=== PATIENT | male | born 1930 | race Caucasian/White ===

== ENCOUNTER → 2016-03-07 | Outpatient (CLI) | payer MEDICARE, OTHER ==
[~2016-03-07] MED LIST: ACET325T PO; ADVA250A INH; AMLO10 PO; AVOD0.5C PO; CARV12.52 PO; CRAN425C2 PO; CRAN500C2 PO; DIVA125C PO; DULC10SU3 RECTAL; ESCI20TA PO; FERR150C PO; FLUT1SPR20; FLUT50SP; LAC-12LO3 TOPICAL; LEVA500T PO; LEVE500 PO; LEVO50TA4 PO; LORA-392 PO; MELA3TAB PO; MEMA1TAB2 PO; MILKSUS4 PO; MULT-135 PO; TAMS5CAP PO; THERTAB17 PO
[2016-03-07 13:17] LABS: AUTOMATED NEUTROPHIL # 2.5 TH/MM3 (1.8-7.7); BASOPHIL % 0.3 % (0.0-2.0); EOSINOPHIL # 0.3 TH/MM3 (0-0.4); EOSINOPHIL % 5.1 % (0.0-4.0); HEMATOCRIT 38.8 % (39.0-51.0); HEMO FLAGS DIFF FINAL; LYMPHOCYTE # 1.6 TH/MM3 (1.0-4.8); MEAN CELL VOLUME 90.7 FL (80.0-100.0); MEAN CORPUSCULAR HEMOGLOBIN 30.3 PG (27.0-34.0); MEAN CORPUSCULAR HGB CONC 33.4 % (32.0-36.0); NEUT % 50.6 % (16.0-70.0); PLATELET COUNT 124 TH/MM3 (150-450); RED BLOOD COUNT 4.28 MIL/MM3 (4.50-5.90); RED CELL DISTRIBUTION WIDTH 13.9 % (11.6-17.2); WHITE BLOOD COUNT 4.9 TH/MM3 (4.0-11.0)
[2016-03-07 13:32] LABS: APTT (PATIENT) 22.7 SEC (24.3-30.1); INTERNATIONAL NORMALIZED RATIO 0.9 RATIO; PROTHROMBIN TIME - PATIENT 9.7 SEC (9.8-11.6)
[2016-03-07 14:05] LABS: ALKALINE PHOSPHATASE 104 U/L (45-117); ALT (GPT) 24 U/L (12-78); ANION GAP 6 MEQ/L (5-15); AST (GOT) 28 U/L (15-37); BICARBONATE 28.1 MEQ/L (21.0-32.0); CHLORIDE 109 MEQ/L (98-107); GLOMERULAR FILTRATION RATE 47 ML/MIN (>89); GLUCOSE,FASTING 75 MG/DL (74-99); POTASSIUM 4.9 MEQ/L (3.5-5.1); SODIUM (NA) 143 MEQ/L (136-145); TOTAL BILIRUBIN ADULT 0.6 MG/DL (0.2-1.0)
[2016-03-07 14:08] LABS: BLOOD UREA NITROGEN 28 MG/DL (7-18)
== END ==
LOC: CPRE 11:02
PROVIDERS: ATTEND Urology
DX: Z01.812 Encounter for preprocedural laboratory examination (principal); N28.89 Other specified disorders of kidney and ureter
CPT/HCPCS: 36415; 80053; 85025; 85610; 85730

== ENCOUNTER 2016-03-09 14:36 | Inpatient (IN) | payer MEDICARE, OTHER ==
[~2016-03-09] VITALS: Ht 172.7 cm; Wt 81.8 kg
[~2016-03-09 14:36] MED LIST changes: -ACET325T PO; -CRAN500C2 PO; -DIVA125C PO; -DULC10SU3 RECTAL; -FLUT1SPR20; -FLUT50SP; -LAC-12LO3 TOPICAL; -LEVA500T PO; -MELA3TAB PO; -MILKSUS4 PO; -THERTAB17 PO
[2016-03-13] VITALS (9 sets, daily range): BP systolic 110–140; BP diastolic 54–56; PULSE 56–70; RESP 16–18; TEMP 96.6–98.5; O2SAT 92–100
[2016-03-13] MEDS ORDERED: ceFAZolin 2 GM PREMIX 50 ML IV SCH (07:30)
[2016-03-13] MEDS ORDERED: METOPROLOL TARTRATE 25 MG TAB PO PRN (07:30)
[2016-03-13] MEDS ORDERED: LACTATED RINGER'S 1000 ML IV SCH (07:30)
[2016-03-13] MEDS ORDERED: INSULIN HUMAN REGULAR 1,000 UNITS/10 ML VIAL SQ PRN (07:30)
[2016-03-13] MEDS ORDERED: SODIUM CHLORID 0.9% 500 ML IV SCH (07:30)
[2016-03-13] MEDS ORDERED: CRAN500C2 PO (07:56)
[2016-03-13] MEDS ORDERED: DIVA125C PO ×2 (08:03)
[2016-03-13] MEDS ORDERED: FLUT50SP (08:08)
[2016-03-13] MEDS ORDERED: MELA3TAB PO (08:14)
[2016-03-13] MEDS ORDERED: THERTAB17 PO (08:14)
[2016-03-13] MEDS ORDERED: HYDROmorphone HCL PF 2 MG/ML VIAL ONE (08:55)
[2016-03-13] MEDS ORDERED: ACETAMINOPHEN 1000 MG/100 ML VIAL IV ONE (09:12)
[2016-03-13] MEDS ORDERED: SUGAMMADEX SODIUM 200 MG/2 ML VIAL IV PUSH ONE ×2 (09:12)
[2016-03-13] MEDS ORDERED: FUROSEMIDE 40 MG/4 ML VIAL ONE (09:15)
[2016-03-13] MEDS ORDERED: METHYLENE BLUE 10 MG/ML VIAL ONE (09:15)
[2016-03-13] MEDS ORDERED: RESP: ALBUTEROL 2.5 MG/3 ML NEB (SCH) ONE (09:17)
[2016-03-13] MEDS ORDERED: FAMOTIDINE 20 MG/2 ML VIAL ONE (09:22)
[2016-03-13] MEDS ORDERED: LACTATED RINGER'S 1000 ML INJ 2,000 ML IV ONE (09:44)
[2016-03-13] MEDS ORDERED: NORMOSOL R INJ 1,000 ML IV ONE (09:44)
[2016-03-13] MEDS ORDERED: PROPOFOL 200 MG/20 ML AMP IV ONE (09:44)
[2016-03-13] MEDS ORDERED: ePHEDrine/NS 50 MG/5 ML SYR IV ONE (09:44)
[2016-03-13] MEDS ORDERED: ONDANSETRON HCL 4 MG/2 ML VIAL IV PUSH ONE (09:44)
[2016-03-13] MEDS ORDERED: PHENYLEPH/NS 1000 MCG/10 ML SYR IV ONE (09:44)
[2016-03-13] MEDS ORDERED: LIDOCAINE HCL 2% JELLY 5 ML SYRINGE ONE (09:51)
[2016-03-13 13:27] LABS: BLOOD GAS BASE EXCESS -3.2 mmol/L (-2-2); BLOOD GAS CARBOXYHEMOGLOBIN 1.6 % (0-4); BLOOD GAS HCO3 25 mmol/L (22-26); BLOOD GAS METHEMOGLOBIN 1.3 % (0-2); BLOOD GAS O2 HGB SATURATION 88 % (90-100); BLOOD GAS OXYGEN CONTENT 16.9 Vol % (12.0-20.0); BLOOD GAS PCO2 72 mmHg (38-42); BLOOD GAS PO2 80 mmHg (61-120); BLOOD GAS TOTAL HGB 13.6 G/DL (12.0-16.0); TEMP CORR TO 98.6
[2016-03-13 13:28] LABS: CRITICAL VALUE YES; OXYGEN DEVICE VENTILATOR
[2016-03-13 13:29] LABS: STAT NO; VENT SETTINGS OR
[2016-03-13] MEDS ORDERED: ceFAZolin INJ 1,000 MG VIAL IV ONE (13:50)
[2016-03-13] MEDS ORDERED: Post-op Orders (for Pharmacy) MISC XX ONE (14:15)
[2016-03-13] MEDS ORDERED: ONDANSETRON HCL 4 MG/2 ML VIAL IV PRN ×2 (14:15→18:00)
[2016-03-13] MEDS ORDERED: SODIUM CHLORIDE 0.9% FLUSH 5 ML FLUSH IVF SCH (14:15)
[2016-03-13] MEDS ORDERED: SODIUM CHLORIDE 0.9% FLUSH 5 ML FLUSH IVF PRN (14:15)
[2016-03-13] MEDS ORDERED: DO NOT ADM ANY ANTICOAGULANT DRUGS XX PRN (14:30)
[2016-03-13] MEDS ORDERED: MIDAZOLAM HCL 2 MG/2 ML VIAL ONE (14:34)
[2016-03-13] MEDS ORDERED: fentaNYL CITRATE 250 MCG/5 ML AMP ONE (14:34)
[2016-03-13 14:40] LABS: BLOOD GAS BASE EXCESS -4.1 mmol/L (-2-2); BLOOD GAS CARBOXYHEMOGLOBIN 1.6 % (0-4); BLOOD GAS HCO3 24 mmol/L (22-26); BLOOD GAS METHEMOGLOBIN 1.2 % (0-2); BLOOD GAS O2 HGB SATURATION 90 % (90-100); BLOOD GAS OXYGEN CONTENT 14.9 Vol % (12.0-20.0); BLOOD GAS PCO2 69 mmHg (38-42); BLOOD GAS PO2 83 mmHg (61-120); BLOOD GAS TOTAL HGB 11.7 G/DL (12.0-16.0); CRITICAL VALUE YES; OXYGEN DEVICE VENTILATOR; TEMP CORR TO 98.6
[2016-03-13 14:41] LABS: DRAW SITE ART LINE; FIO2 80 %; STAT YES; VENT SETTINGS AC 600/12/+8PEEP
[2016-03-13] MEDS ORDERED: PROPOFOL 1000 MG/100 ML INJ 100 ML ONE (14:48)
[2016-03-13] MEDS ORDERED: HYDROmorphone HCL PF 2 MG/ML VIAL IV PRN (15:00)
[2016-03-13] MEDS ORDERED: TERBUTALINE INJ 1 MG/ML AMP SQ PRN (15:00)
[2016-03-13] MEDS: LACTATED RINGER'S 1000 ML INJ 1,000 ML IV SCH ×2 (15:00→21:57)
[2016-03-13 15:25] LABS: BLOOD GAS BASE EXCESS -3.1 mmol/L (-2-2); BLOOD GAS CARBOXYHEMOGLOBIN 1.6 % (0-4); BLOOD GAS HCO3 24 mmol/L (22-26); BLOOD GAS METHEMOGLOBIN 1.2 % (0-2); BLOOD GAS O2 HGB SATURATION 93 % (90-100); BLOOD GAS OXYGEN CONTENT 16.9 Vol % (12.0-20.0); BLOOD GAS PCO2 62 mmHg (38-42); BLOOD GAS PO2 97 mmHg (61-120); BLOOD GAS TOTAL HGB 12.8 G/DL (12.0-16.0); TEMP CORR TO 98.6
[2016-03-13 15:27] LABS: CRITICAL VALUE YES; DRAW SITE ART LINE; FIO2 80 %; OXYGEN DEVICE VENTILATOR; STAT YES; VENT SETTINGS AC 600/18/+8PEEP
--- NOTE | 2016-03-13 15:58 | RADRPT ---
EXAM DATE/TIME: 03/13/2016 14:27 [facility] COMPARISON: CHEST SINGLE AP, February 12, 2016, 18:54. INDICATIONS : Central line placement. MEDICAL HISTORY : dementia SURGICAL HISTORY : None. ENCOUNTER: Initial ACUITY: 1 day PAIN SCORE: Non-responsive. LOCATION: Bilateral chest FINDINGS: The cardiac silhouette is normal in transverse diameter. Endotracheal tube is in good position above the saba. There is atelectasis in the right upper lobe centrally obstructing lesion is not excluded . A right sided internal jugular vein catheter is in place without pneumothorax with its tip in the s uperior vena cava. CONCLUSION: 1. Uncomplicated line placement. No evidence of pneumothorax. 2. Right upper lobe atelectasis Junaid Ramírez MD on March 13, 2016 at 15:56 Board Certified Radiologist. This report was verified electronically.
[2016-03-13] MEDS ORDERED: PROPOFOL 1000 MG/100 ML IV SCH (16:00)
[2016-03-13] MEDS: PHENYLEPHRINE 40 MG/D5W 496 ML ADMIX IV SCH ×2 (16:01)
[2016-03-13] MEDS: RESP: ALBUTEROL 2.5 MG/IPRATROPIUM 0.5 MG NEB (SCH) INH ×2 (18:00→20:18)
[2016-03-13] MEDS ORDERED: CHLORHEXIDINE GLUCONATE 2 % 1 PACK (2 CLOTHS) TOP PRN (18:00)
[2016-03-13] MEDS ORDERED: ACETAMINOPHEN 325 MG TAB PO PRN (18:00)
[2016-03-13] MEDS ORDERED: SODIUM CHLORIDE 0.9% FLUSH 5 ML FLUSH IV FLUSH PRN (18:00)
[2016-03-13] MEDS ORDERED: MISCELLANEOUS NURSING INFORMATION XX SCH (18:00)
--- NOTE | 2016-03-13 18:23 | PD.CONS ---
[facility] Service Critical Care Medicine Consult Requested By Urology Service Reason for Consult Respiratory Failure Primary Care Physician Sayra Deshpande DO History of Present Illness 85 y/o man immediately following left nephrectomy has ventilator dependent respiratory failure and RUL atelectasis. Seen in PACU and I will follow in ICU. Past Family Social History Allergies: Coded Allergies: No Known Allergies (Unverified , 03/07/16) Physical Exam Vital Signs Vital Signs Date Time Temp Pulse Resp B/P Pulse Ox O2 Delivery O2 Flow Rate FiO2 03/13/16 17:42 80 03/13/16 17:30 97.0 03/13/16 17:00 97.0 56 18 115/65 99 Mechanical Ventilator 80 03/13/16 16:45 57 18 114/64 98 Mechanical Ventilator 80 03/13/16 16:30 80 03/13/16 16:30 56 18 111/60 97 Mechanical Ventilator 80 03/13/16 16:30 96.8 03/13/16 16:15 55 18 111/63 97 Mechanical Ventilator 80 03/13/16 16:00 57 18 114/64 97 Mechanical Ventilator 80 03/13/16 15:45 56 19 114/62 97 Mechanical Ventilator 80 03/13/16 15:30 80 03/13/16 15:30 59 18 114/64 97 Mechanical Ventilator 80 03/13/16 15:30 96.6 03/13/16 15:15 59 18 109/60 96 Mechanical Ventilator 80 03/13/16 15:00 55 18 106/56 96 Mechanical Ventilator 80 03/13/16 14:50 95 80 03/13/16 14:45 54 18 104/53 93 Mechanical Ventilator 80 03/13/16 14:40 96.6 56 18 110/56 93 03/13/16 14:30 58 12 86/49 94 Mechanical Ventilator 80 03/13/16 14:20 96.5 03/13/16 14:19 93 80 03/13/16 14:13 96.5 62 12 91/51 99 Mechanical Ventilator 80 03/13/16 14:13 80 03/13/16 07:49 98.5 70 16 131/54 95 Physical Exam P 60, BP 115/65, R 18 Elderly man, intubated, sedated. Neck: Supple, right IJ line. orally intubated. Lungs: Scattered sonorous rhonchi and left side wheezes. Good krissy air movement. Heart: NL S1S2, RRR, No JVD. Abdomen: Post-surgical, quiet, nondistended. Extremities: Well perfused, toes tepid. Neuro: Pupils 1 mm, react. Sedated, intubated. Laboratory Laboratory Tests Test 03/13/16 03/13/16 03/13/16 03/13/16 08:03 13:07 14:30 15:15 Blood Type O POSITIVE Antibody Screen NEGATIVE Crossmatch Leukocyte-Reduced Red Blood Cells Blood Bank Comment Blood Gas Puncture Site DRAWN IN OR ART LINE ART LINE Blood Gas Patient Temperature 98.6 98.6 98.6 Blood Gas HCO3 25 24 24 Blood Gas Base Excess -3.2 -4.1 -3.1 Blood Gas Oxygen Saturation 88 90 93 Arterial Blood pH 7.16 7.16 7.21 Arterial Blood Partial 72 69 62 Pressure CO2 Arterial Blood Partial 80 83 97 Pressure O2 Arterial Blood Oxygen Content 16.9 14.9 16.9 Arterial Blood 1.6 1.6 1.6 Carboxyhemoglobin Arterial Blood Methemoglobin 1.3 1.2 1.2 Blood Gas Hemoglobin 13.6 11.7 12.8 Oxygen Delivery Device VENTILATOR VENTILATOR VENTILATOR Blood Gas Ventilator Setting OR AC AC 600/12/+8PEEP 600/18/+8PEEP Blood Gas Inspired Oxygen 80 80 Assessment and Plan Assessment and Plan Assessment: 1. Respiratory Failure, hypoxemic. 2. RUL atelectasis. 3. S/P left nephrectomy. Plan: 1. Bronchodilators. 2. PRVC mode. 3. Bronch if RUL doesn't reopen by a.m. 4. SCDS. 5. Protonix. 6. Hgb. Overall impression: Critically ill, requiring elevated FiO2 70% and mechanical ventilation. Acceptable hemodynamics. Admit ICU. Critical care 44 mins Tony Lockhart MD Mar 13, 2016 18:23
[2016-03-13 18:37] LABS: HEMATOCRIT 37.6 % (39.0-51.0)
[2016-03-13 18:39] LABS: REVIEW FLAG FINAL
[2016-03-13] MEDS: PANTOPRAZOLE SODIUM 40 MG VIAL IV PUSH SCH (19:27)
[2016-03-13] MEDS: CHLORHEXIDINE 0.12% (ORAL KIT) 15 ML CUP MT SCH (20:00)
[2016-03-13] MEDS: CARVEDILOL 12.5 MG TAB PO SCH (21:00)
[2016-03-13] MEDS ORDERED: levETIRAcetam 500 MG TAB PO SCH (21:00)
[2016-03-13] MEDS ORDERED: DIVALPROEX SODIUM SPRINKLES 125 MG CAP PO SCH (21:00)
[2016-03-13] MEDS: SODIUM CHLORIDE 0.9% FLUSH 5 ML FLUSH IV FLUSH SCH (21:03)
[2016-03-13] MEDS: levETIRAcetam 500 MG/5 ML UDC PO SCH (21:56)
[2016-03-14] VITALS (19 sets, daily range): BP systolic 121–146; BP diastolic 42–66; PULSE 60–71; RESP 13–20; TEMP 96–98.6; O2SAT 87–100
[2016-03-14] MEDS: MORPHINE SULFATE 4 MG/ML INJ IV PRN ×3 (02:26→19:51)
[2016-03-14] MEDS: RESP: ALBUTEROL 2.5 MG/IPRATROPIUM 0.5 MG NEB (SCH) INH ×4 (03:37→20:07)
[2016-03-14] MEDS: CHLORHEXIDINE GLUCONATE 2 % 1 PACK (2 CLOTHS) TOP SCH (04:35)
[2016-03-14 05:28] LABS: HEMATOCRIT 35.7 % (39.0-51.0)
[2016-03-14 05:30] LABS: REVIEW FLAG FINAL
[2016-03-14] MEDS: LACTATED RINGER'S 1000 ML INJ 1,000 ML IV SCH ×3 (05:33→20:46)
[2016-03-14] MEDS: LEVOTHYROXINE SODIUM 50 MCG TAB PO SCH (05:33)
[2016-03-14] MEDS: DIVALPROEX SODIUM SPRINKLES 125 MG CAP PO SCH ×3 (05:33→22:21)
[2016-03-14 05:52] LABS: BLOOD GAS BASE EXCESS -0.5 mmol/L (-2-2); BLOOD GAS CARBOXYHEMOGLOBIN 1.1 % (0-4); BLOOD GAS HCO3 24 mmol/L (22-26); BLOOD GAS METHEMOGLOBIN 0.8 % (0-2); BLOOD GAS O2 HGB SATURATION 93 % (90-100); BLOOD GAS OXYGEN CONTENT 15.8 Vol % (12.0-20.0); BLOOD GAS PCO2 46 mmHg (38-42); BLOOD GAS PO2 76 mmHg (61-120); BLOOD GAS TOTAL HGB 12.1 G/DL (12.0-16.0); CRITICAL VALUE NO; DRAW SITE ART LINE; FIO2 55 %; OXYGEN DEVICE VENTILATOR; STAT NO; TEMP CORR TO 98.6; VENT SETTINGS PEVC/AC
[2016-03-14 05:53] LABS: ALT (GPT) 21 U/L (12-78); ANION GAP 8 MEQ/L (5-15); AST (GOT) 39 U/L (15-37); BICARBONATE 25.7 MEQ/L (21.0-32.0); BLOOD UREA NITROGEN 24 MG/DL (7-18); CHLORIDE 106 MEQ/L (98-107); GLOMERULAR FILTRATION RATE 37 ML/MIN (>89); POTASSIUM 4.8 MEQ/L (3.5-5.1); SODIUM (NA) 140 MEQ/L (136-145)
[2016-03-14 05:55] LABS: ALKALINE PHOSPHATASE 72 U/L (45-117); TOTAL BILIRUBIN ADULT 0.5 MG/DL (0.2-1.0)
--- NOTE | 2016-03-14 06:43 | RADRPT ---
EXAM DATE/TIME: 03/14/2016 03:28 [facility] COMPARISON: CHEST SINGLE AP, March 13, 2016, 14:27. INDICATIONS : Renal failure, short of breath MEDICAL HISTORY : Renal failure, chronic. SURGICAL HISTORY : None. ENCOUNTER: Subsequent ACUITY: 3 days PAIN SCORE: Non-responsive. LOCATION: Bilateral chest FINDINGS: Endotracheal tube, nasogastric tube and right central line are present in good position. There is mil d infiltrate at the medial right base. Left lung is clear. Cardiomediastinal contours are satisfactor y. CONCLUSION: Improved aeration. Balaji Nunn MD on March 14, 2016 at 6:40 Board Certified Radiologist. This report was verified electronically.
--- NOTE | 2016-03-14 07:29 | HHI.CCPN ---
Subjective Remarks/Hospital Course 85 y/o man immediately following left nephrectomy has ventilator dependent respiratory failure and RUL atelectasis. Seen in PACU and I will follow in ICU. 03/14: RUL has completely re-expanded. Gas exchange acceptable, will start CPAP trials. Urine out excellent. Objective Vital Signs Date Time Temp Pulse Resp B/P Pulse Ox O2 Delivery O2 Flow Rate FiO2 03/14/16 07:20 92 40 03/14/16 06:00 60 03/14/16 04:00 97.6 18 144/52 03/13/16 19:40 Mechanical Ventilator Intake and Output 03/13/16 03/13/16 03/14/16 08:00 16:00 00:00 Intake Total 3700 ml 1260 ml Output Total 990 ml 665 ml Balance 2710 ml 595 ml Result Diagram: 03/14/16 0440 03/14/16 0440 Other Results Laboratory Tests Test 03/13/16 03/13/16 03/13/16 03/14/16 13:07 14:30 15:15 05:45 Blood Gas Puncture Site DRAWN IN OR ART LINE ART LINE ART LINE Blood Gas Patient Temperature 98.6 98.6 98.6 98.6 Blood Gas HCO3 25 mmol/L 24 mmol/L 24 mmol/L 24 mmol/L (22-26) (22-26) (22-26) (22-26) Blood Gas Base Excess -3.2 mmol/L -4.1 mmol/L -3.1 mmol/L -0.5 mmol/L (-2-2) (-2-2) (-2-2) (-2-2) Blood Gas Oxygen Saturation 88 % (90-100) 90 % (90-100) 93 % (90-100) 93 % (90- 100) Arterial Blood pH 7.16 7.16 7.21 7.35 (7.380-7.420) (7.380-7.420) (7.380-7.420) (7.380-7.420) Arterial Blood Partial 72 mmHg (38-42) 69 mmHg (38-42) 62 mmHg (38-42) 46 mmHg ( 38-42) Pressure CO2 Arterial Blood Partial 80 mmHg 83 mmHg 97 mmHg 76 mmHg Pressure O2 (61-120) (61-120) (61-120) (61-120) Arterial Blood Oxygen Content 16.9 Vol % 14.9 Vol % 16.9 Vol % 15.8 Vol % (12.0-20.0) (12.0-20.0) (12.0-20.0) (12.0-20.0) Arterial Blood 1.6 % (0-4) 1.6 % (0-4) 1.6 % (0-4) 1.1 % (0-4) Carboxyhemoglobin Arterial Blood Methemoglobin 1.3 % (0-2) 1.2 % (0-2) 1.2 % (0-2) 0.8 % (0-2) Blood Gas Hemoglobin 13.6 G/DL 11.7 G/DL 12.8 G/DL 12.1 G/DL (12.0-16.0) (12.0-16.0) (12.0-16.0) (12.0-16.0) Oxygen Delivery Device VENTILATOR VENTILATOR VENTILATOR VENTILATOR Blood Gas Ventilator Setting OR AC AC PEVC/AC 600/12/+8PEEP 600/18/+8PEEP Blood Gas Inspired Oxygen 80 % 80 % 55 % Objective Remarks P 62, BP 118/68, R 17 Elderly man, intubated, mildly sedated. Neck: Supple, right IJ line. orally intubated. Lungs: Few sonorous rhonchi and no wheezes. Good krissy air movement. Heart: NL S1S2, RRR, No JVD. Abdomen: Post-surgical, quiet, nondistended. Large midline hernia, easily reducible. Extremities: Well perfused, toes warm now. Neuro: Pupils 2 mm, react. Good spontaneous resp effort. A/P Assessment and Plan Assessment: 1. Respiratory Failure, hypoxemic -> resolved. 2. RUL atelectasis -> resolved. 3. S/P left nephrectomy. Plan: 1. Bronchodilators. 2. PRVC mode -> CPAP trials. 3. Bronch not necessary today. 4. SCDS. 5. Protonix. 6. Hgb a.m. 7. Try to extubate. 8. Follow RFTs. Overall impression: Much improved pulmonary function. Acceptable hemodynamics. Try to extubate. Tony Lockhart MD Mar 14, 2016 07:29
[2016-03-14] MEDS: CHLORHEXIDINE 0.12% (ORAL KIT) 15 ML CUP MT SCH ×2 (08:43→19:53)
[2016-03-14] MEDS: levETIRAcetam 500 MG/5 ML UDC PO SCH ×2 (10:20→22:21)
[2016-03-14] MEDS: SODIUM CHLORIDE 0.9% FLUSH 5 ML FLUSH IV FLUSH SCH ×2 (10:20→19:53)
[2016-03-14] MEDS: CARVEDILOL 12.5 MG TAB PO SCH ×2 (10:20→19:52)
[2016-03-14] MEDS: HYDROmorphone HCL PF 1 MG/ML VIAL IV PRN ×2 (10:30→17:02)
--- NOTE | 2016-03-14 17:04 | HHI.PR ---
Subjective Remarks Postop day #1 Remains intubated Objective Vital Signs Vital Signs Date Time Temp Pulse Resp B/P Pulse Ox O2 Delivery O2 Flow Rate FiO2 03/14/16 16:01 93 65 03/14/16 14:00 70 03/14/16 12:00 97.4 68 18 146/48 95 03/14/16 12:00 68 03/14/16 12:00 65 03/14/16 11:13 94 65 03/14/16 10:40 65 03/14/16 10:00 70 03/14/16 09:00 55 03/14/16 08:00 61 03/14/16 08:00 40 03/14/16 08:00 96.0 61 13 142/51 92 03/14/16 08:00 142/51 03/14/16 07:20 92 40 03/14/16 07:20 40 03/14/16 07:15 40 03/14/16 07:00 Mechanical Ventilator 55 03/14/16 06:00 60 03/14/16 04:34 98 55 03/14/16 04:00 97.6 60 18 144/52 98 03/14/16 04:00 60 03/14/16 04:00 55 03/14/16 02:00 65 03/14/16 01:16 100 55 03/14/16 00:00 60 03/14/16 00:00 97.5 60 18 138/66 100 03/14/16 00:00 60 03/13/16 22:00 64 03/13/16 22:00 60 03/13/16 22:00 98 60 03/13/16 20:40 92 70 03/13/16 20:30 70 03/13/16 20:18 100 50 03/13/16 20:00 100 03/13/16 20:00 100 100 03/13/16 20:00 97.7 64 18 140/54 100 Automatic Cuff 03/13/16 20:00 64 03/13/16 20:00 140/54 Automatic Cuff 03/13/16 19:40 63 18 137/55 99 Mechanical Ventilator 60 03/13/16 19:30 60 18 134/69 99 Mechanical Ventilator 60 03/13/16 19:30 60 03/13/16 19:15 63 18 131/70 99 Mechanical Ventilator 60 03/13/16 19:00 97.5 62 18 120/67 99 Mechanical Ventilator 60 03/13/16 18:48 03/13/16 18:45 63 18 130/70 99 Mechanical Ventilator 60 03/13/16 18:30 61 18 128/71 98 Mechanical Ventilator 60 03/13/16 18:30 60 03/13/16 18:15 61 18 131/73 99 Mechanical Ventilator 60 03/13/16 18:14 98 60 03/13/16 18:14 60 03/13/16 18:10 97.5 03/13/16 18:00 61 20 124/68 99 Mechanical Ventilator 60 03/13/16 17:45 60 20 117/70 99 Mechanical Ventilator 60 03/13/16 17:42 60 03/13/16 17:30 97.0 03/13/16 17:30 62 18 125/70 99 Mechanical Ventilator 80 03/13/16 17:15 59 18 119/66 99 Mechanical Ventilator 80 I/O 03/13/16 03/13/16 03/13/16 03/14/16 03/14/16 03/14/16 07:00 15:00 23:00 07:00 15:00 23:00 Intake Total 3300 ml 1660 ml 1108 ml 1246 ml Output Total 990 ml 665 ml 635 ml 615 ml 30 ml Balance 2310 ml 995 ml 473 ml 631 ml -30 ml Intake IV Total 1410 ml 1108 ml 1111 ml Packed Cells 300 ml 250 ml Other 3000 ml 135 ml Output Urine Total 360 ml 425 ml 440 ml Gastric Drainage Total 100 ml 100 ml Drainage Total 90 ml 305 ml 110 ml 75 ml 30 ml Estimated Blood Loss 600 ml Other 300 ml # Bowel Movements 0 0 Result Diagram: 03/14/16 0440 03/14/16 0440 Objective Remarks Abdomen nondistended, wound sites clean and dry Extremities adequately perfused Assessment and Plan Assessment and Plan Urologic impression: Status post robot-assisted laparoscopic left radical nephrectomy which was converted to an open surgical procedure. Presently hemodynamically stable remains intubated. Plan: #1 continue with ICU care #2 appreciate assistance of the belt notcher #3 continue Morales catheter to gravity drainage #4 continue with local wound care #5 check pathology when available Juan F Ortega MD Mar 14, 2016 17:04
[2016-03-14] MEDS: PANTOPRAZOLE SODIUM 40 MG VIAL IV PUSH SCH (18:11)
[2016-03-14] MEDS: PROPOFOL 1000 MG/100 ML INJ 100 ML IV SCH (19:52)
[2016-03-14] MEDS: PHENYLEPHRINE 40 MG/D5W 496 ML ADMIX IV SCH ×2 (20:44)
[2016-03-15] VITALS (19 sets, daily range): BP systolic 86–136; BP diastolic 42–76; PULSE 77–133; RESP 18–31; TEMP 97.5–99.6; O2SAT 78–99
[2016-03-15] MEDS: MORPHINE SULFATE 4 MG/ML INJ IV PRN ×4 (01:11→21:12)
[2016-03-15] MEDS: RESP: ALBUTEROL 2.5 MG/IPRATROPIUM 0.5 MG NEB (PRN) INH (01:25)
[2016-03-15] MEDS: RESP: ALBUTEROL 2.5 MG/IPRATROPIUM 0.5 MG NEB (SCH) INH ×3 (03:13→20:22)
--- NOTE | 2016-03-15 03:39 | RADRPT ---
EXAM DATE/TIME: 03/15/2016 02:29 [facility] COMPARISON: CHEST SINGLE AP, March 14, 2016, 3:28. INDICATIONS : Evaluate for pulmonary disease. MEDICAL HISTORY : Renal failure, chronic. SURGICAL HISTORY : None. ENCOUNTER: Subsequent ACUITY: 4 - 6 days PAIN SCORE: Non-responsive. LOCATION: Bilateral chest FINDINGS: Endotracheal tube, nasogastric tube and right central line remain in place. There has been slight int erval worsening in aeration with worsening of perihilar and basilar parenchymal opacities, right wors e than left. Cardiomediastinal contours are stable. CONCLUSION: Worsening aeration. Balaji Nunn MD on March 15, 2016 at 3:37 Board Certified Radiologist. This report was verified electronically.
[2016-03-15] MEDS: CHLORHEXIDINE GLUCONATE 2 % 1 PACK (2 CLOTHS) TOP SCH (04:09)
[2016-03-15 04:59] LABS: BASOPHIL % 0.1 % (0.0-2.0); EOSINOPHIL % 0.6 % (0.0-4.0); HEMATOCRIT 36.6 % (39.0-51.0); LYMPH % 8.5 % (9.0-44.0); LYMPHOCYTE # 0.4 TH/MM3 (1.0-4.8); MEAN CELL VOLUME 89.9 FL (80.0-100.0); MEAN CORPUSCULAR HEMOGLOBIN 30.3 PG (27.0-34.0); MEAN CORPUSCULAR HGB CONC 33.7 % (32.0-36.0); MONO % 6.8 % (0.0-8.0); PLATELET COUNT 49 TH/MM3 (150-450); RED BLOOD COUNT 4.07 MIL/MM3 (4.50-5.90); RED CELL DISTRIBUTION WIDTH 15.1 % (11.6-17.2); WHITE BLOOD COUNT 4.8 TH/MM3 (4.0-11.0)
[2016-03-15] MEDS ORDERED: EPINEPHrine HCL (1:10,000) 1 MG/10 ML SYRINGE IV ONE (05:00)
[2016-03-15] MEDS ORDERED: EPINEPHrine HCL (1:1000) 30 MG/30 ML VIAL IV ONE (05:00)
[2016-03-15] MEDS ORDERED: CALCIUM CHLORIDE 10% SOLN 1 GRAM/10 ML SYR IV ONE (05:00)
[2016-03-15] MEDS: PHENYLEPHRINE 40 MG/D5W 496 ML ADMIX IV SCH ×2 (05:16)
[2016-03-15] MEDS: LEVOTHYROXINE SODIUM 50 MCG TAB PO SCH (05:17)
[2016-03-15 05:18] LABS: HEMO FLAGS AUTO DIFF
[2016-03-15] MEDS: LACTATED RINGER'S 1000 ML INJ 1,000 ML IV SCH ×3 (05:18→22:38)
[2016-03-15] MEDS: DIVALPROEX SODIUM SPRINKLES 125 MG CAP PO SCH ×2 (05:18→13:26)
[2016-03-15 05:35] LABS: BICARBONATE 25.4 MEQ/L (21.0-32.0)
[2016-03-15 05:47] LABS: CALCIUM-PROTEIN CORRECTED 8.2 MG/DL (8.5-10.1)
[2016-03-15] MEDS ORDERED: Vancomycin Consult Pharmacy 1 EA OTHER SCH (06:30)
--- NOTE | 2016-03-15 06:34 | HHI.CCPN ---
Subjective Remarks/Hospital Course 85 y/o man immediately following left nephrectomy has ventilator dependent respiratory failure and RUL atelectasis. Seen in PACU and I will follow in ICU. 03/14: RUL has completely re-expanded. Gas exchange acceptable, will start CPAP trials. Urine out excellent. 03/15: Underlying chronic bronchitis and emphysema is complicating recovery. Gram negative sasha in sputum. Will broaden abx coverage. Objective Vital Signs Date Time Temp Pulse Resp B/P Pulse Ox O2 Delivery O2 Flow Rate FiO2 03/15/16 06:00 109 03/15/16 04:36 95 100 03/15/16 04:00 99.6 19 102/42 03/14/16 19:00 Mechanical Ventilator Intake and Output 03/14/16 03/14/16 03/15/16 08:00 16:00 00:00 Intake Total 1168 ml 1246 ml 1363 ml Output Total 635 ml 645 ml 460 ml Balance 533 ml 601 ml 903 ml Result Diagram: 03/15/16 04303/15/16 0430 Objective Remarks P 63, BP 119/67, R 22 Elderly man, intubated Neck: Supple, right IJ line. orally intubated. Lungs: Bilateral sonorous rhonchi and light wheezes. Good krissy air movement. Heart: NL S1S2, RRR, No JVD. Abdomen: Post-surgical, BS active, nondistended. Large midline hernia, easily reducible. Extremities: Well perfused, toes warm now. Neuro: Pupils 2 mm, react. Good spontaneous resp effort. A/P Assessment and Plan Assessment: 1. Respiratory Failure, hypoxemic -> resolved. 2. RUL atelectasis -> resolved. 3. S/P left nephrectomy. 4. Right lung infiltrate Plan: 1. Bronchodilators. 2. PRVC mode -> CPAP trials. 3. Bronch not necessary today. 4. SCDS. 5. Protonix. 6. Hgb a.m. 7. SBTs 8. Follow RFTs. 9. Add vanc and cefepime. Overall impression: Problematic pulmonary function. Acceptable hemodynamics. Tony Lockhart MD Mar 15, 2016 06:34
[2016-03-15] MEDS ORDERED: ALBUMIN HUMAN 5% 12.5 GM/250 ML BOTTLE IV ONE (06:55)
[2016-03-15] MEDS ORDERED: ALBUMIN HUMAN 5% 25 GM/500 ML BOTTLE IV ONE (07:30)
[2016-03-15] MEDS: NOREPINEPHRINE 4 MG/D5W 250 ML IV SCH ×12 (07:45→21:47)
[2016-03-15] MEDS: EPINEPHrine 2 MG/D5W 250 ML IV SCH ×4 (07:55→14:05)
[2016-03-15] MEDS ORDERED: VANCOMYCIN INJ 1,700 MG in SODIUM CHLORID 0.9% 500 ML INJ 500 ML IV ONE (08:00)
[2016-03-15] MEDS ORDERED: methylPREDNISolone SOD SUCC 125 MG/2 ML VIAL ONE (08:02)
[2016-03-15 08:04] LABS: BLOOD GAS BASE EXCESS -3.2 mmol/L (-2-2); BLOOD GAS CARBOXYHEMOGLOBIN 0.8 % (0-4); BLOOD GAS HCO3 22 mmol/L (22-26); BLOOD GAS METHEMOGLOBIN 0.8 % (0-2); BLOOD GAS O2 HGB SATURATION 98 % (90-100); BLOOD GAS OXYGEN CONTENT 15.2 Vol % (12.0-20.0); BLOOD GAS PCO2 48 mmHg (38-42); BLOOD GAS PO2 200 mmHg (61-120); BLOOD GAS TOTAL HGB 10.8 G/DL (12.0-16.0); CRITICAL VALUE YES; OXYGEN DEVICE VENTILATOR; TEMP CORR TO 98.6
[2016-03-15 08:05] LABS: DRAW SITE ART LINE; FIO2 100 %; STAT YES
[2016-03-15] MEDS ORDERED: diphenhydrAMINE HCL 50 MG/ML VIAL ONE (08:09)
[2016-03-15 08:10] LABS: BANDS 28 % (0-6); EOSINOPHILS 3 % (0-4); PLATELET ESTIMATE SMEAR LOW (NORMAL); PLATELET MORPHOLOGY NORMAL (NORMAL); POLYS (SEG NEUTROPHILS) 55 % (16-70); SCAN/DIFF FINAL DIFF MANUAL; WBC DIFF SAMPLE 100
[2016-03-15] MEDS: CHLORHEXIDINE 0.12% (ORAL KIT) 15 ML CUP MT SCH ×2 (08:44→20:00)
[2016-03-15] MEDS: CEFEPIME INJ 2,000 MG in SODIUM CHLORIDE 0.9% INJ 100 ML IV SCH (08:45)
[2016-03-15] MEDS: CARVEDILOL 12.5 MG TAB PO SCH ×2 (09:00→21:00)
[2016-03-15] MEDS: SODIUM CHLORIDE 0.9% FLUSH 5 ML FLUSH IV FLUSH SCH ×2 (09:33→21:09)
[2016-03-15] MEDS: levETIRAcetam 500 MG/5 ML UDC PO SCH ×2 (09:35→21:08)
[2016-03-15] MEDS ORDERED: CALCIUM GLUCONATE INJ 2 GM in SODIUM CHLORIDE 0.9% INJ 100 ML IV ONE (10:00)
[2016-03-15 10:45] LABS: CKMB 4.9 NG/ML (0.5-3.6)
[2016-03-15] MEDS ORDERED: DOBUTamine INJ 500 MG in DEXTROSE 5% IN WATER INJ 210 ML IV SCH ×2 (11:45)
[2016-03-15] MEDS ORDERED: HYDROCORTISONE SOD SUCCINATE 100 MG VIAL IV PUSH SCH (12:00)
[2016-03-15] MEDS ORDERED: LEVOFLOXACIN 750 MG/DEXTROSE 150 ML IV ONE (12:00)
--- NOTE | 2016-03-15 12:34 | HHI.PR ---
Subjective Remarks Postoperative day #2 Remains intubated Objective Vital Signs Vital Signs Date Time Temp Pulse Resp B/P Pulse Ox O2 Delivery O2 Flow Rate FiO2 03/15/16 08:13 98 100 03/15/16 06:00 109 03/15/16 04:36 95 100 03/15/16 04:00 99.6 112 19 102/42 92 03/15/16 04:00 112 03/15/16 04:00 100 03/15/16 02:00 97 03/15/16 01:58 91 85 03/15/16 01:15 93 75 03/15/16 00:00 77 03/15/16 00:00 98.9 78 18 136/51 93 03/15/16 00:00 75 03/14/16 22:00 69 03/14/16 20:07 90 75 03/14/16 20:00 134/48 03/14/16 20:00 98.6 60 18 134/48 94 03/14/16 20:00 60 03/14/16 20:00 75 03/14/16 19:00 Mechanical Ventilator 75 03/14/16 18:58 87 75 03/14/16 18:55 75 03/14/16 18:50 Mechanical Ventilator 75 03/14/16 18:00 68 03/14/16 16:01 93 65 03/14/16 16:00 71 03/14/16 16:00 65 03/14/16 16:00 98.6 71 20 121/42 91 03/14/16 14:00 70 I/O 03/14/16 03/14/16 03/14/16 03/15/16 03/15/16 03/15/16 07:00 15:00 23:00 07:00 15:00 23:00 Intake Total 1168 ml 1246 ml 1363 ml 1696 ml Output Total 635 ml 615 ml 490 ml 420 ml Balance 533 ml 631 ml 873 ml 1276 ml Intake IV Total 1108 ml 1111 ml 1303 ml 1596 ml Tube Irrigant 60 ml 60 ml 100 ml Other 135 ml Output Urine Total 425 ml 440 ml 250 ml 200 ml Gastric Drainage Total 100 ml 100 ml 150 ml 150 ml Drainage Total 110 ml 75 ml 90 ml 70 ml # Bowel Movements 0 0 0 0 Result Diagram: 03/15/1642903/15/16429 Objective Remarks Abdomen nondistended, wound sites clean and dry Extremities adequately perfused EVELYN drain in place with serosanguineous output Assessment and Plan Assessment and Plan Urologic impression: Status post robot-assisted laparoscopic left radical nephrectomy which was converted to an open surgical procedure. Presently hemodynamically stable remains intubated. Primary present concern is pulmonary function. Plan: #1 continue with ICU care #2 appreciate assistance of the supervisor carding #3 continue Morales catheter to gravity drainage #4 continue with local wound care #5 continue with EVELYN drainage #6 check pathology when available Juan F Ortega MD Mar 15, 2016 12:33
[2016-03-15 13:09] LABS: BLOOD GAS VENOUS BASE EXCESS -6.6 mmol/L (-2-2); BLOOD GAS VENOUS HCO3 19 mmol/L (22-26); BLOOD GAS VENOUS O2 CONTENT 10.9 Vol % (9.0-17.0); BLOOD GAS VENOUS O2 HGB SAT 69 % (70-76); BLOOD GAS VENOUS PCO2 44 mmHg (44-48); BLOOD GAS VENOUS PO2 42 mmHg (35-40); BLOOD GAS VENOUS pH 7.27 (7.360-7.400); CRITICAL VALUE YES; OXYGEN DEVICE VENTILATOR; TEMP CORR TO 98.6
[2016-03-15 13:11] LABS: DRAW SITE CENTRAL LINE; FIO2 100 %; STAT YES
--- NOTE | 2016-03-15 14:10 | EC ---
Study Study Date:03/15/2016 STUDY CONCLUSIONS SUMMARY - Procedure narrative: Transthoracic echocardiography. Image quality was poor. Scanning was performed from the parasternal, apical, and subcostal acoustic windows. - Left ventricle: The cavity size was normal. Wall thickness was normal. Systolic function was mildly to moderately reduced. The estimated ejection fraction was in the range of 40% to 45%. Diffuse hypokinesis. - Atrial septum: Echo salinecontrast study showed no [id number] atrial level shunt.. If LV function is below 40, please consider prescribing an ACEI or ARB or document rationale for non-use. PROCEDURE DATA STUDY STATUS: Elective. Procedure: Transthoracic echocardiography. Image quality was poor. Scanning was performed from the parasternal, apical, and subcostal acoustic windows. Study completion: The patient tolerated the procedure well. Transthoracic echocardiography. M-mode, complete 2D, complete spectral Doppler, and color Doppler. Patient status: Inpatient. CARDIAC ANATOMY LEFT VENTRICLE: The cavity size was normal. Wall thickness was normal. Systolic function was mildly to moderately reduced. The estimated ejection fraction was in the range of 40% to 45%. Diffuse hypokinesis. AORTIC VALVE: Trileaflet; normal thickness leaflets. Doppler: Transvalvular velocity was within the normal range. There was no stenosis. No regurgitation. AORTA: Aortic root: The aortic root was normal in size. MITRAL VALVE: Structurally normal valve. Doppler: Transvalvular velocity was within the normal range. There was no evidence for stenosis. No regurgitation. LEFT ATRIUM: The atrium was normal in size. ATRIAL SEPTUM: Echo salinecontrast study showed no tmgjo-ox-wnlp atrial level shunt.. RIGHT VENTRICLE: The cavity size was normal. Wall thickness was normal. PULMONIC VALVE: Doppler: Transvalvular velocity was within the normal range. There was no evidence for stenosis. No regurgitation. TRICUSPID VALVE: Structurally normal valve. Doppler: Transvalvular velocity was within the normal range. No regurgitation. PULMONARY ARTERY: The main pulmonary artery was normal-sized. Systolic pressure was within the normal range. RIGHT ATRIUM: The atrium was normal in size. PERICARDIUM: There was no pericardial effusion. SYSTEMIC VEINS: Inferior vena cava: The vessel was normal in size. BASIC MEASUREMENTS ADULT NORMAL Left ventricle LV internal dimension, ED, chordal level, *40.7 mm 43-52 PLAX LV internal dimension, ES, chordal level, 35.2 mm 23-38 PLAX Fractional shortening, chordal level, PLAX *14 % >29 LV posterior wall thickness, ED 11.2 mm IVS/LVPW ratio, ED 1.06 <1.3 Ventricular septum Septal thickness, ED 11.9 mm Right ventricle RV internal dimension, ED, PLAX *38.4 mm 19-38 LEGEND: Mean values are shown as u=mean value. Asterisk (*) reyes values outside specified normal range. Prepared and signed by Kj Bobo [id number]
[2016-03-15] MEDS ORDERED: HEPARIN SODIUM - IV 10,000 UNITS/10 ML VIAL IV PRN ×4 (16:30→17:15)
[2016-03-15] MEDS ORDERED: HEPARIN 25,000 UNITS-D5W 250 ML - PREMIX IV SCH (16:30)
[2016-03-15] MEDS: PANTOPRAZOLE SODIUM 40 MG VIAL IV PUSH SCH (16:53)
--- NOTE | 2016-03-15 16:54 | MB ---
cc: JOANAJOANA DATE OF CONSULTATION 03/15/16 REASON FOR CONSULTATION Respiratory failure. HISTORY OF PRESENT ILLNESS Mr. Fontana is an 85-year-old male with known history of renal cell carcinoma who underwent a left nephrectomy two days ago, postoperatively requiring continued mechanical ventilation. The patient was noted to have significant hypoxemia requiring high inspired oxygen fraction. He as well was hypotensive, presently on pressor therapy. Metabolic acidosis as well is present. The patient was significantly hypercarbic. This seems to have improved. His PCO2 was in the 60s, now at 48. The patient does not relate any history. The history is obtained from his record. ALLERGIES No known allergies MEDICATIONS Current medications 1. IV pressors as needed 2. Cefepime 3. Depakote 4. Synthroid. 5. Keppra 6. IV sedation as needed. FAMILY HISTORY AND SOCIAL HISTORY Not obtainable. REVIEW OF SYSTEMS A 12-point review of systems essentially as above, otherwise not available. PHYSICAL EXAMINATION VITAL SIGNS:: Temperature is 99.6. His pulse is 110, respirations 18, blood pressure 119/55, oxygen saturation at 85% inspired oxygen fraction at 100%. HEENT: Exam unremarkable. Eyes no icterus. NECK: Without adenopathy or thyroid enlargement. CHEST: Few scattered rhonchi bilaterally. CARDIAC: PMI not appreciated, S1, S2 audible. 1-2/6 ejection systolic murmur left sternal border. ABDOMEN: Lax, bowel sounds audible. EXTREMITIES: No clubbing, cyanosis or edema. LABORATORY DATA White count 4.8, hemoglobin 12, hematocrit 36, platelets 49,000. ABG - pH 7.29, pCO2 42, pO2 200 this a.m. Sodium 138, potassium 4, BUN 25, creatinine 2.0. IMAGING STUDIES Chest x-ray increased markings bilaterally, previous atelectasis right upper lung lobe improved. IMPRESSION 1. Hypoxic and hypercarbic respiratory failure 2. ARDS picture. 3. Status post left nephrectomy for renal cell cancer. PLAN The patient is with multiple medical problems, is on multiple pressors to maintain adequate tissue perfusion. His hypoxemia is probably multifactorial related to the postoperative state. possible infection. Pulmonary embolization is as well a possibility. However, further diagnostic procedures for same at this time is not possible. The patient is with renal insufficiency which makes it inadvisable to proceed with CT angiography. Meanwhile, a ventilation perfusion lung scan would not be helpful. Empiric anticoagulation will be appropriate as well as antibiotic therapy for underlying infection in an attempt to improve oxygenation as much as possible via ventilatory support. His prognosis with his multiple medical problems is guarded to poor. We will follow-up his course along with you and, depending on progress, proceed further. I do thank you for asking to partake in Mr. Fontana's care. Joana Bernard MD WWW/ /3:33 PM /4:37 PM
[2016-03-15] MEDS ORDERED: HEPARIN SODIUM - IV 10,000 UNITS/10 ML VIAL IV ONE (17:15)
[2016-03-15] MEDS ORDERED: methylPREDNISolone SOD SUCC 40 MG/1 ML VIAL IV SCH (18:00)
[2016-03-15] MEDS: methylPREDNISolone SOD SUCC 40 MG/1 ML VIAL IV SCH (18:28)
[2016-03-15] MEDS ORDERED: HEPARIN SODIUM - IV 10,000 UNITS/10 ML VIAL IV SCH (18:45)
[2016-03-15 18:46] LABS: APTT (PATIENT) 36.8 SEC (24.3-30.1)
[2016-03-15] MEDS: HEPARIN 25,000 UNITS-D5W 250 ML - PREMIX IV SCH (19:31)
[2016-03-15] MEDS: DOBUTamine 250 MG/D5W 250 ML PREMIX DRIP IV SCH (20:15)
--- NOTE | 2016-03-15 20:51 | EKG ---
Date Performed: 03/15/2016 Time Performed: 08:02:30 PTAGE: 85 years EKG: sinus tachycardia. Poor R wave progression - probable normal variant Lateral ST-T changes a re nonspecific Borderline ECG NO PREVIOUS TRACING DOCTOR: Dusty Rivero Interpretating Date/Time 03/15/2016 20:50:36
--- NOTE | 2016-03-15 22:34 | MP ---
cc: SOSA ORTEGA MD DATE OF SURGERY 03/13/16 INDICATIONS FOR PROCEDURE Case of a pleasant 85-year-old gentleman with a left renal mass that has been progressing in size who presents today to undergo a robot assisted laparoscopic left radical nephrectomy. PREOPERATIVE DIAGNOSIS Left renal mass highly suspicious for renal cell carcinoma. POSTOPERATIVE DIAGNOSIS Left renal mass highly suspicious for renal cell carcinoma. ATTENDING SURGEON Dr. Jaiden Ortega ROLL RECLAIMER Dr. Hoffman PROCEDURES PERFORMED Robot assisted laparoscopic left radical nephrectomy converted to open surgical procedure ANESTHESIA General. SPECIMENS Left kidney. ESTIMATED BLOOD LOSS 600 mL COMPLICATIONS None. PROCEDURE IN DETAIL The patient was brought to the operating room suite and placed supine on the OR table. He was then placed under general endotracheal anesthesia. He was then repositioned in the right lateral recumbent position with the hip flexed and all pressure points were adequately padded. A beanbag device was utilized to secure the patient in proper position. The patient was next prepped and draped in normal sterile fashion and all pressure points were adequately padded. After an appropriate time-out was undertaken, I proceeded with placing the laparoscopic ports as follows. Initially the Veress needle was utilized to create a pneumoperitoneum in standard fashion. Once this was accomplished, the visual obturator was utilized and, under direct vision, the camera port was placed. Once this was placed, the three robot arm ports were placed under direct vision as well as the physician's assistant port. Next the robot was docked in standard fashion. I repositioned myself over at the [facility] console. Dr. Hoffman remained at the bedside to physician's assistant. I then proceeded with mobilizing the patient's left colon. I cut along the line of Toldt and reflected the colon medially to expose the retroperitoneum. The kidney with mass was identified and mobilized. I was able to identify the hilar vein which was markedly distended with tumor thrombus and I proceeded to gently skeletonize the vein working towards the inferior vena cava. During this portion of the procedure, the patient's O2 sats dropped precipitously and thus the decision was made to undock the robot. The robot was undocked and the pneumoperitoneum was released. Subsequent to this, the patient's O2 saturations improved significantly. At this point in time, I want ahead with completing the procedure by converting to an open surgical procedure. I did discuss with the anesthesiologist if I felt it was safe from their vantage point to proceed with surgery and they agreed that it was so. I then made a left subcostal incision with #10 blade and extended this down to the underlying fascia and muscle layers. I used the Bovie cautery to complete the incision and expose the intra-abdominal cavity. I then proceeded with further dissecting around the hilum vessels and was able to fully identify the left renal vein up to the point of its attachment to the IVC and the tumor thrombus was almost to the IVC, but there was a little bit of space approximately 1 cm prior to reaching the IVC. I could not clearly identify the renal artery at this point, thus I decided to proceed with dividing and ligating the vein. I was able to push back on the tumor thrombus towards the kidney. I was able to get the endovascular stapling device across the proximal renal vein. It was cut and ligated without any difficulty. Once this was accomplished, the left renal artery was identified. It too was divided and ligated with the endovascular stapling device. I then proceeded to further mobilize the kidney and was able to transect the gonadal vein and ureter distally. The kidney was then freed up and handed off to send off to pathology. Careful inspection was made of the left renal bed. No significant bleeding was noted. I then proceeded with placing a EVELYN drain and closed the patient. Two-layer closure was accomplished utilizing #1 PDS suture material. The overlying skin edges were reapproximated with the skin stapling device. The larger laparoscopic port sites were closed by approximating the fascia deeply with 2-0 Vicryl suture and then reema on the skin surface. One of the robot ports was utilized to bring the EVEYLN drain out of and the remaining ports were closed with a skin stapling device. Sterile dressings were then placed over all wound sites. The patient tolerated the procedure without any significant complications and was transferred to the PACU in satisfactory condition. MD NOE Marino/ /2:06 PM /10:24 PM
[2016-03-16] VITALS (19 sets, daily range): BP systolic 121–169; BP diastolic 46–72; PULSE 89–121; RESP 15–40; TEMP 97.4–98.7; O2SAT 90–97
[2016-03-16] MEDS: DIVALPROEX SODIUM SPRINKLES 125 MG CAP PO SCH ×4 (00:36→21:47)
[2016-03-16] MEDS: MORPHINE SULFATE 4 MG/ML INJ IV PRN ×2 (00:36→15:06)
[2016-03-16] MEDS: methylPREDNISolone SOD SUCC 40 MG/1 ML VIAL IV SCH ×4 (00:39→17:25)
[2016-03-16 02:16] LABS: APTT (PATIENT) GREATER THAN 153.4 SEC (24.3-30.1)
[2016-03-16] MEDS: RESP: ALBUTEROL 2.5 MG/IPRATROPIUM 0.5 MG NEB (SCH) INH ×4 (03:25→19:46)
[2016-03-16] MEDS: CHLORHEXIDINE GLUCONATE 2 % 1 PACK (2 CLOTHS) TOP SCH (04:00)
[2016-03-16] MEDS: NOREPINEPHRINE 4 MG/D5W 250 ML IV SCH ×3 (04:26→06:06)
[2016-03-16 04:38] LABS: APTT (PATIENT) GREATER THAN 153.4 SEC (24.3-30.1)
[2016-03-16 05:30] LABS: AUTOMATED NEUTROPHIL # 9.2 TH/MM3 (1.8-7.7); BASOPHIL % 0.1 % (0.0-2.0); HEMATOCRIT 33.8 % (39.0-51.0); LYMPH % 3.2 % (9.0-44.0); LYMPHOCYTE # 0.3 TH/MM3 (1.0-4.8); MEAN CELL VOLUME 90.1 FL (80.0-100.0); MEAN CORPUSCULAR HEMOGLOBIN 30.2 PG (27.0-34.0); MEAN CORPUSCULAR HGB CONC 33.5 % (32.0-36.0); MONO % 7.3 % (0.0-8.0); NEUT % 89.4 % (16.0-70.0); PLATELET COUNT 40 TH/MM3 (150-450); RED BLOOD COUNT 3.75 MIL/MM3 (4.50-5.90); RED CELL DISTRIBUTION WIDTH 15.3 % (11.6-17.2); WHITE BLOOD COUNT 10.3 TH/MM3 (4.0-11.0)
[2016-03-16 05:31] LABS: HEMO FLAGS AUTO DIFF
--- NOTE | 2016-03-16 05:55 | RADRPT ---
EXAM DATE/TIME: 03/16/2016 04:03 [facility] COMPARISON: CHEST SINGLE AP, March 15, 2016, 2:29. INDICATIONS : Please evaluate after respiratory failure. MEDICAL HISTORY : Renal failure, chronic. SURGICAL HISTORY : None. ENCOUNTER: Subsequent ACUITY: 1 day PAIN SCORE: Non-responsive. LOCATION: Bilateral chest FINDINGS: Lines and tubes are present not significantly changed. There is worsening right lung mixed interstiti al and alveolar process with extension into the right upper lobe. Focal consolidation has developed i n the left lung base. CONCLUSION: Worsening right lung parenchymal process and development of focal consolidation left lung base. Romario Charles MD on March 16, 2016 at 5:52 Board Certified Radiologist. This report was verified electronically.
[2016-03-16] MEDS: LEVOTHYROXINE SODIUM 50 MCG TAB PO SCH (06:06)
[2016-03-16] MEDS: LACTATED RINGER'S 1000 ML INJ 1,000 ML IV SCH (06:10)
[2016-03-16 06:14] LABS: BICARBONATE 20.1 MEQ/L (21.0-32.0); POTASSIUM 4.9 MEQ/L (3.5-5.1)
[2016-03-16] MEDS: DOBUTamine 250 MG/D5W 250 ML PREMIX DRIP IV SCH (06:20)
[2016-03-16] MEDS: CEFEPIME INJ 2,000 MG in SODIUM CHLORIDE 0.9% INJ 100 ML IV SCH (06:21)
[2016-03-16] MEDS: PROPOFOL 1000 MG/100 ML INJ 100 ML IV SCH ×3 (06:22→17:25)
--- NOTE | 2016-03-16 06:27 | HHI.CCPN ---
Subjective Remarks/Hospital Course 85 y/o man immediately following left nephrectomy has ventilator dependent respiratory failure and RUL atelectasis. Seen in PACU and I will follow in ICU. 03/14: RUL has completely re-expanded. Gas exchange acceptable, will start CPAP trials. Urine out excellent. 03/15: Underlying chronic bronchitis and emphysema is complicating recovery. Gram negative sasha in sputum. Will broaden abx coverage. 03/16: Continued poor gas diffusion capacity, requiring 90% FiO2. LV function markedly reduced with EF 40% and fractional shortening 14% (while on epinephrine 5 mics/min). Epi now weaned off and dobutamine at 5 mics/kg/min with pulse rate 102. Levophed still > 30 mics.min, unable to taper. Hemodynamics consistent with overwhelming sepsis, most likely cause is Pseudomonas pneumonia. This organism was probably selected through antibiotic use during his recent pneumonia prior to surgery. No R -> L atrial communication to account for dramatic changes in PO2. Objective Vital Signs Date Time Temp Pulse Resp B/P Pulse Ox O2 Delivery O2 Flow Rate FiO2 03/16/16 04:33 96 100 03/16/16 04:00 97.4 108 20 121/49 03/15/16 19:00 Mechanical Ventilator Intake and Output 03/15/16 03/15/16 03/16/16 08:00 16:00 00:00 Intake Total 1696 ml 4949 ml 3034 ml Output Total 420 ml 900 ml 585 ml Balance 1276 ml 4049 ml 2449 ml Result Diagram: 03/16/16 0443 03/15/16 0430 Other Results Microbiology Date/Time Procedure Status Source Growth 03/13/16 20:25 Gram Stain - Final Complete Sputum Endotracheal 03/13/16 20:25 Sputum Culture - Final Complete Pseudomonas Aeruginosa Laboratory Tests Test 03/15/16 03/15/16 07:50 12:55 Blood Gas Puncture Site ART LINE CENTRAL LINE Blood Gas Patient Temperature 98.6 98.6 Blood Gas HCO3 22 mmol/L (22-26) Blood Gas Base Excess -3.2 mmol/L (-2-2) Blood Gas Oxygen Saturation 98 % (90-100) Arterial Blood pH 7.29 (7.380-7.420) Arterial Blood Partial 48 mmHg (38-42) Pressure CO2 Arterial Blood Partial 200 mmHg Pressure O2 (61-120) Arterial Blood Oxygen Content 15.2 Vol % (12.0-20.0) Arterial Blood 0.8 % (0-4) Carboxyhemoglobin Arterial Blood Methemoglobin 0.8 % (0-2) Blood Gas Hemoglobin 10.8 G/DL (12.0-16.0) Oxygen Delivery Device VENTILATOR VENTILATOR Blood Gas Ventilator Setting Blood Gas Inspired Oxygen 100 % 100 % Venous Blood pH 7.27 (7.360-7.400) Venous Blood Partial Pressure 44 mmHg (44-48) CO2 Venous Blood Partial Pressure 42 mmHg (35-40) O2 Venous Blood HCO3 19 mmol/L (22-26) Venous Blood Oxygen Saturation 69 % (70-76) Venous Blood Oxygen Content 10.9 Vol % (9.0-17.0) Venous Blood Base Excess -6.6 mmol/L (-2-2) Objective Remarks P 102, BP 121/68, R 20 Elderly man, intubated Neck: Supple, right IJ line, site clean, dry. orally intubated. Lungs: Persistent bilateral sonorous rhonchi and light wheezes. Good krissy air movement. Heart: NL S1S2, RRR, No JVD. Abdomen: Post-surgical, BS active, nondistended. Large midline hernia, easily reducible. Extremities: Well perfused, toes warm. Neuro: Pupils 2 mm, react. Good spontaneous resp effort. Moves 4 limbs spontaneously, opens eyes to voice. A/P Assessment and Plan Assessment: 1. Respiratory Failure, hypoxemic 2. RUL atelectasis -> resolved. 3. S/P left nephrectomy. 4. Bilateral pneumonia. 5. Lactic acidosis. Plan: 1. Bronchodilators. 2. PSV, continuous. 3. Add levaquin 03/15. 4. SCDS. 5. Protonix. 6. Hgb a.m. 7. SBTs 8. Follow RFTs. 9. Vanc and cefepime. 10. Narrow abx after all cultures returned. 11. Add vasopressin. Overall impression: ARDS behavior, however poor oxygenation is do to infected localized lung units and not diffuse disease. Apices largely replaced with emphysema. He does not oxygenate adequately on AC or PC, but when he initiates each breath his diffusion is acceptable. He remains critically ill, ventilator dependent, and floridly septic. Critical care 45 mins aside from procedures Tony Lockhart MD Mar 16, 2016 06:27
[2016-03-16] MEDS ORDERED: VASOPRESSIN INJ 40 UNITS in DEXTROSE 5% IN WATER 100ML INJ 98 ML IV SCH ×2 (06:38)
[2016-03-16 07:22] LABS: APTT (PATIENT) 117.7 SEC (24.3-30.1)
[2016-03-16 07:43] LABS: BANDS 41 % (0-6); BURR CELLS 2+ (NORMAL); METAMYELOCYTES 2 % (0-1); NEUTROPHIL # MANUAL DIFF 9.3 TH/MM3 (1.8-7.7); PLATELET ESTIMATE SMEAR LOW (NORMAL); PLATELET MORPHOLOGY NORMAL (NORMAL); POLYS (SEG NEUTROPHILS) 47 % (16-70); SCAN/DIFF FINAL DIFF MANUAL; WBC DIFF SAMPLE 100
[2016-03-16] MEDS: CHLORHEXIDINE 0.12% (ORAL KIT) 15 ML CUP MT SCH ×2 (08:27→19:52)
[2016-03-16] MEDS: VASOPRESSIN INJ 40 UNITS in DEXTROSE 5% IN WATER 100ML INJ 98 ML IV SCH ×4 (08:27→18:55)
[2016-03-16] MEDS: BENEPROTEIN POWDER 1 PACK G-TUBE SCH ×3 (08:28→17:25)
[2016-03-16] MEDS: SODIUM CHLORIDE 0.9% FLUSH 5 ML FLUSH IV FLUSH SCH ×2 (08:28→19:55)
[2016-03-16 08:49] LABS: BLOOD GAS BASE EXCESS -7.7 mmol/L (-2-2); BLOOD GAS CARBOXYHEMOGLOBIN 0.9 % (0-4); BLOOD GAS HCO3 18 mmol/L (22-26); BLOOD GAS METHEMOGLOBIN 0.9 % (0-2); BLOOD GAS O2 HGB SATURATION 94 % (90-100); BLOOD GAS PCO2 36 mmHg (38-42); BLOOD GAS PO2 84 mmHg (61-120); BLOOD GAS TOTAL HGB 11.3 G/DL (12.0-16.0); CRITICAL VALUE NO; OXYGEN DEVICE VENTILATOR; TEMP CORR TO 98.6
[2016-03-16 08:50] LABS: DRAW SITE ART LINE; FIO2 90 %; STAT NO; VENT SETTINGS CPAP/PSV12/PEEP10
[2016-03-16 09:04] LABS: LACTIC ACID GHOST NOT REPORTABLE
[2016-03-16] MEDS: levETIRAcetam 500 MG/5 ML UDC PO SCH ×2 (09:34→21:48)
[2016-03-16] MEDS: NOREPINEPHRINE INJ 8 MG in DEXTROSE 5% IN WATE 500 ML INJ 500 ML IV SCH ×4 (09:40→15:49)
[2016-03-16] MEDS: METOCLOPRAMIDE HCL SYRUP 10 MG/10 ML UDC PO SCH ×2 (10:25→19:54)
[2016-03-16] MEDS ORDERED: SODIUM BICARBONATE 8.4% SOLN 50 MEQ/50 ML VIAL IV PUSH ONE (10:30)
[2016-03-16] MEDS ORDERED: VANCOMYCIN 1,500 MG/NS 500 ML IV ONE ×2 (11:00)
--- NOTE | 2016-03-16 11:04 | HHI.PR ---
Subjective Remarks Postop day #3 Remains intubated Objective Vital Signs Vital Signs Date Time Temp Pulse Resp B/P Pulse Ox O2 Delivery O2 Flow Rate FiO2 03/16/16 08:14 97 90 03/16/16 08:00 97 03/16/16 08:00 101 149/48 03/16/16 08:00 98.1 97 18 144/47 97 169/72 03/16/16 08:00 90 03/16/16 07:00 96 Mechanical Ventilator 90 03/16/16 06:00 100 03/16/16 04:33 96 100 03/16/16 04:00 97.4 108 20 121/49 95 03/16/16 04:00 101 03/16/16 04:00 100 03/16/16 02:33 24 03/16/16 02:00 114 03/16/16 01:20 97 100 03/16/16 00:00 98.6 117 40 126/53 95 03/16/16 00:00 100 03/16/16 00:00 121 03/15/16 22:00 121 03/15/16 20:11 85 100 03/15/16 20:00 119 03/15/16 20:00 119 127/50 03/15/16 20:00 99.6 119 27 127/50 84 03/15/16 20:00 100 03/15/16 19:00 84 Mechanical Ventilator 100 03/15/16 18:00 120 03/15/16 16:49 84 100 03/15/16 16:00 100 03/15/16 16:00 98.5 108 21 126/76 82 117/57 03/15/16 16:00 108 03/15/16 14:00 109 03/15/16 12:43 85 100 03/15/16 12:00 107 03/15/16 12:00 98.8 107 20 119/51 78 126/59 03/15/16 12:00 100 I/O 03/15/16 03/15/16 03/15/16 03/16/16 03/16/16 03/16/16 07:00 15:00 23:00 07:00 15:00 23:00 Intake Total 1696 ml 4949 ml 3034 ml 2601 ml Output Total 420 ml 900 ml 585 ml 1355 ml Balance 1276 ml 4049 ml 2449 ml 1246 ml Intake IV Total 1596 ml 4949 ml 2974 ml 2501 ml Tube Irrigant 100 ml 60 ml 100 ml Output Urine Total 200 ml 750 ml 450 ml 1200 ml Gastric Drainage Total 150 ml 100 ml 100 ml 100 ml Drainage Total 70 ml 50 ml 35 ml 55 ml # Bowel Movements 0 0 0 0 Result Diagram: 03/16/1644203/16/16442 Objective Remarks Abdomen nondistended, wound sites clean and dry Extremities adequately perfused EVELYN drain in place with serosanguineous output Assessment and Plan Assessment and Plan Urologic impression: Status post robot-assisted laparoscopic left radical nephrectomy which was converted to an open surgical procedure. Remains ventilator dependent. Remains on pressors. ARDS/Sepsis Plan: #1 continue with ICU care as per rn primary care #2 DC EVELYN drain #3 continue Morales catheter to gravity drainage #4 continue with local wound care #5 check pathology when available Juan F Ortega MD Mar 16, 2016 11:04
[2016-03-16 11:10] LABS: APTT (PATIENT) GREATER THAN 153.4 SEC (24.3-30.1)
[2016-03-16] MEDS ORDERED: LEVOFLOXACIN 250 MG PREMIX INJ 50 ML IV SCH (14:00)
[2016-03-16 14:02] LABS: APTT (PATIENT) 75.8 SEC (24.3-30.1)
--- NOTE | 2016-03-16 14:03 | MB ---
cc: ANJELICA DEJESUS FRANKLYN F. MD DATE OF CONSULTATION: 03/16/2016 REASON FOR CONSULTATION Sepsis. HISTORY OF PRESENT ILLNESS This is an 85-year-old white male who was admitted to the hospital for video-assisted left nephrectomy. The patient underwent the procedure on 03/13/2016 for a left renal mass which was highly suspicious for renal cell carcinoma. The procedure was converted to an open surgical procedure. The patient has been on the ventilator and he was evaluated by pulmonary specialty because of significant hypoxemia. He also developed hypotension. He is currently on Levophed at 22 mcg. Sputum culture was taken on 03/13/2016 and it came back with Pseudomonas aeruginosa. The patient has been afebrile since admission. His white count is 10.3 today, however, his platelet count is decreased at 40. He has 21% bands on the differential. Chest x-ray from 03/13/2016 revealed a right lower lobe infiltrates suggesting atelectasis. Repeat chest x-ray on 03/14/2016 showed improvement but follow-up on 03/15/2016 showed worsening aeration, and he now has worsening right lung parenchymal process and development of focal consolidation of the left lung base. He has a copious amount of thick secretions being suctioned from the endotracheal tube. The patient is currently on the ventilator and is sedated and unresponsive. Information is obtained from the medical records. The patient has been in the hospital recently on two occasions. He was treated for pneumonia with lung infiltrate but cultures were not obtained because he was not coughing up any sputum. At the recent hospitalization he was found to be pancytopenic and was seen by hematology. It was felt that the pancytopenia may have been related to medications and cephalosporin was suspect. He was treated with cefepime and Levaquin during that admission. PAST MEDICAL HISTORY 1. COPD. 2. Hypothyroidism. 3. Coronary artery disease. 4. Hypertension. 5. Gastroesophageal reflux disease. 6. Benign prostatic hypertrophy. 7. Alzheimer's dementia. 8. Cardiomyopathy. 9. Malignant carcinoid tumor. 10. Tonsillectomy. 11. Dental surgery. 12. Renal pathology pending from current left renal mass resection. ALLERGIES No known drug allergies. MEDICATIONS 1. Vancomycin. 2. Cefepime. 3. Norepinephrine. 4. Reglan. 5. Methylprednisolone. 6. Levophed. 7. Dobutamine. 8. Depakote. 9. Norvasc. 10. Synthroid. 11. Keppra. 12. Propofol. 13. Protonix. SOCIAL HISTORY No tobacco. No alcohol. No illicit drugs. FAMILY HISTORY Unable to obtain. REVIEW OF SYSTEMS Unable to obtain. PHYSICAL EXAMINATION GENERAL: This is a slender well-nourished male who is intubated and on the ventilator. He is sedated and unresponsive. VITAL SIGNS: Temperature 98.3, blood pressure 139/46, respirations per ventilator, heart rate 92. HEENT: Head is atraumatic. Unable to assess extraocular movements. Oropharynx intubated. Buccal mucosa is slightly dry. NECK: Supple without adenopathy or swelling. LUNGS: Coarse rhonchi bilaterally. HEART: Regular rate and rhythm. No audible murmurs, rubs or gallops. ABDOMEN: Bowel sounds present. Soft. Unable to appreciate tenderness. Surgical incisions appear intact and there is no drainage at the entry sites where the video-assisted incisions were made for his surgery. : Unremarkable. RECTAL: Not performed. EXTREMITIES: 1+ edema. SKIN: No rash. The patient has multiple skin tags on the upper chest. NEUROLOGIC: Unable to assess. LABORATORY DATA WBC 10.3, platelet count 40, 41% bands, 47% neutrophils, hemoglobin 11.3. WBC on 03/15/2016 was 4.8. Creatinine 2.40, BUN 26, sodium 133. IMPRESSION 1. Severe sepsis. 2. Pneumonia due to Pseudomonas, which is likely the cause of the severe sepsis. 3. Thrombocytopenia. 4. Acute renal disease. 5. Recent pancytopenia. 6. Patient status post radical cystectomy for bladder mass. RECOMMENDATIONS 1. Resume treatment with Levaquin. 2. Change cefepime to piperacillin/tazobactam. 3. Continue vancomycin. 4. Obtain blood cultures. 5. Monitor platelet count. 6. Monitor white blood cell count. Thank you for this consultation. The patient's progress will be monitored and further recommendations will be given on follow-up if necessary. Darío Jiménez MD FD/BRYANNA /12:37 PM /1:43 PM BRITT
[2016-03-16 16:00] LABS: BLOOD GAS BASE EXCESS -6.2 mmol/L (-2-2); BLOOD GAS CARBOXYHEMOGLOBIN 1.1 % (0-4); BLOOD GAS HCO3 19 mmol/L (22-26); BLOOD GAS O2 HGB SATURATION 91 % (90-100); BLOOD GAS OXYGEN CONTENT 13.8 Vol % (12.0-20.0); BLOOD GAS PCO2 37 mmHg (38-42); BLOOD GAS PO2 69 mmHg (61-120); BLOOD GAS TOTAL HGB 10.7 G/DL (12.0-16.0); CRITICAL VALUE NO; DRAW SITE ART LINE; FIO2 90 %; OXYGEN DEVICE VENTILATOR; STAT NO; TEMP CORR TO 98.6
[2016-03-16] MEDS: PIPERACIL-TAZO 2.25 GM PREMIX 50 ML IV SCH (16:26)
[2016-03-16 16:29] LABS: POTASSIUM 5.1 MEQ/L (3.5-5.1)
[2016-03-16 16:30] LABS: MAGNESIUM 1.4 MG/DL (1.5-2.5)
[2016-03-16] MEDS: PANTOPRAZOLE SODIUM 40 MG VIAL IV PUSH SCH (17:25)
[2016-03-16] MEDS ORDERED: SODIUM BICARBONATE 8.4% INJ 50 MEQ/50 ML SYR IV STA (17:48)
[2016-03-16] MEDS: MAGNESIUM SULFAT 1 GM PREMIX 100 ML x2 bags IV SCH ×2 (18:03→18:04)
[2016-03-16 21:47] LABS: APTT (PATIENT) 98.7 SEC (24.3-30.1)
[2016-03-16] MEDS: RESP: ALBUTEROL 2.5 MG/IPRATROPIUM 0.5 MG NEB (PRN) INH (23:39)
[2016-03-17] VITALS (14 sets, daily range): BP systolic 118–130; BP diastolic 36–45; PULSE 90–125; RESP 13–19; TEMP 97.6–98.7; O2SAT 80–94
[2016-03-17] MEDS: methylPREDNISolone SOD SUCC 40 MG/1 ML VIAL IV SCH ×3 (00:48→11:56)
[2016-03-17 02:20] LABS: POTASSIUM 5.1 MEQ/L (3.5-5.1)
[2016-03-17 02:31] LABS: APTT (PATIENT) 68.5 SEC (24.3-30.1)
[2016-03-17] MEDS: PIPERACIL-TAZO 2.25 GM PREMIX 50 ML IV SCH (02:41)
[2016-03-17] MEDS ORDERED: DIGOXIN 0.5 MG/2 ML VIAL IV PUSH SCH (02:45)
[2016-03-17] MEDS: RESP: ALBUTEROL 2.5 MG/IPRATROPIUM 0.5 MG NEB (SCH) INH ×3 (03:30→16:00)
[2016-03-17 03:38] LABS: BLOOD GAS HCO3 21 mmol/L (22-26); BLOOD GAS O2 HGB SATURATION 90 % (90-100); BLOOD GAS OXYGEN CONTENT 12.5 Vol % (12.0-20.0); BLOOD GAS PCO2 47 mmHg (38-42); BLOOD GAS PO2 71 mmHg (61-120); BLOOD GAS TOTAL HGB 9.8 G/DL (12.0-16.0); TEMP CORR TO 98.6
[2016-03-17 03:39] LABS: CRITICAL VALUE YES; DRAW SITE ALINE; FIO2 100 %; OXYGEN DEVICE VENTILATOR; ULNAR PULSE PRESENT; VENT SETTINGS CPAP/PS10/PEEP10
[2016-03-17 03:40] LABS: STAT NO
[2016-03-17] MEDS: CHLORHEXIDINE GLUCONATE 2 % 1 PACK (2 CLOTHS) TOP SCH (03:47)
[2016-03-17] MEDS: HEPARIN 25,000 UNITS-D5W 250 ML - PREMIX IV SCH (04:12)
[2016-03-17] MEDS: DIVALPROEX SODIUM SPRINKLES 125 MG CAP PO SCH ×2 (05:31→14:00)
[2016-03-17] MEDS: LEVOTHYROXINE SODIUM 50 MCG TAB PO SCH (05:31)
[2016-03-17] MEDS ORDERED: PHARMACY ORDERED LAB XX ONE (06:00)
[2016-03-17 06:08] LABS: APTT (PATIENT) 57.3 SEC (24.3-30.1)
[2016-03-17 06:31] LABS: BICARBONATE 22.7 MEQ/L (21.0-32.0); CALCIUM-PROTEIN CORRECTED 8.1 MG/DL (8.5-10.1); MAGNESIUM 2.1 MG/DL (1.5-2.5); POTASSIUM 5.1 MEQ/L (3.5-5.1); TOTAL BILIRUBIN ADULT 0.9 MG/DL (0.2-1.0)
--- NOTE | 2016-03-17 06:32 | RADRPT ---
EXAM DATE/TIME: 03/17/2016 04:51 [facility] COMPARISON: CHEST SINGLE AP, March 16, 2016, 4:03. INDICATIONS : Shortness of breath. MEDICAL HISTORY : Renal failure, chronic. SURGICAL HISTORY : None. ENCOUNTER: Subsequent ACUITY: 4 - 6 days PAIN SCORE: Non-responsive. LOCATION: Bilateral chest FINDINGS: Endotracheal tube tip well above the saba. Gastric tube traverses the [id number]. Right college intern al jugular catheter tip in the distal superior vena cava. No evidence of pneumothorax. Increased de nsity to the airspace opacities in the right midlung, improved consolidation at the left base and per sistent focal areas of opacity in the left perihilar and left lower lung. CONCLUSION: Bilateral airspace opacities, increased on the right, decreased in the medial left and stable in the perihilar and lower lateral left lung. Dalton Morrison MD on March 17, 2016 at 6:29 Board Certified Radiologist. This report was verified electronically.
[2016-03-17 07:06] LABS: AUTOMATED NEUTROPHIL # 5.5 TH/MM3 (1.8-7.7); BASOPHIL % 0.1 % (0.0-2.0); HEMATOCRIT 28.7 % (39.0-51.0); LYMPH % 2.1 % (9.0-44.0); LYMPHOCYTE # 0.1 TH/MM3 (1.0-4.8); MEAN CELL VOLUME 89.4 FL (80.0-100.0); MEAN CORPUSCULAR HEMOGLOBIN 30.6 PG (27.0-34.0); MEAN CORPUSCULAR HGB CONC 34.2 % (32.0-36.0); MONO % 7.2 % (0.0-8.0); NEUT % 90.6 % (16.0-70.0); PLATELET COUNT 33 TH/MM3 (150-450); RED BLOOD COUNT 3.21 MIL/MM3 (4.50-5.90); RED CELL DISTRIBUTION WIDTH 15.5 % (11.6-17.2)
[2016-03-17 08:07] LABS: HEMO FLAGS AUTO DIFF
[2016-03-17] MEDS: PROPOFOL 1000 MG/100 ML INJ 100 ML IV SCH (08:27)
[2016-03-17] MEDS: CHLORHEXIDINE 0.12% (ORAL KIT) 15 ML CUP MT SCH (08:28)
[2016-03-17] MEDS: BENEPROTEIN POWDER 1 PACK G-TUBE SCH (08:29)
[2016-03-17] MEDS: METOCLOPRAMIDE HCL SYRUP 10 MG/10 ML UDC PO SCH (08:30)
[2016-03-17] MEDS: SODIUM CHLORIDE 0.9% FLUSH 5 ML FLUSH IV FLUSH SCH (08:30)
--- NOTE | 2016-03-17 08:34 | HHI.CCPN ---
Subjective Remarks/Hospital Course 85 y/o man immediately following left nephrectomy has ventilator dependent respiratory failure and RUL atelectasis. Seen in PACU and I will follow in ICU. 03/14: RUL has completely re-expanded. Gas exchange acceptable, will start CPAP trials. Urine out excellent. 03/15: Underlying chronic bronchitis and emphysema is complicating recovery. Gram negative sasha in sputum. Will broaden abx coverage. 03/16: Continued poor gas diffusion capacity, requiring 90% FiO2. LV function markedly reduced with EF 40% and fractional shortening 14% (while on epinephrine 5 mics/min). Epi now weaned off and dobutamine at 5 mics/kg/min with pulse rate 102. Levophed still > 30 mics.min, unable to taper. Hemodynamics consistent with overwhelming sepsis, most likely cause is Pseudomonas pneumonia. This organism was probably selected through antibiotic use during his recent pneumonia prior to surgery. No R -> L atrial communication to account for dramatic changes in PO2. 03/17: O2 requirements increased overnight. FiO2 1.00 for the last 12 hours, O2 sat remains 9293 %. With addition of vasopressin, Levophed was weaned to 14 mcgs, to maintain MAP of 65, the patient continues on dobutamine at 5mcgs. The patient had an episode of A. fib with RVR overnight, immediately converted post Digoxin administration. Creatinine continues to increase, urine output averaged 30 cc/hour for the last 24 hours. Objective Vital Signs Date Time Temp Pulse Resp B/P Pulse Ox O2 Delivery O2 Flow Rate FiO2 03/17/16 06:00 92 03/17/16 04:00 100 03/17/16 04:00 97.6 15 130/45 94 03/16/16 07:00 Mechanical Ventilator Intake and Output 03/16/16 03/16/16 03/17/16 08:00 16:00 00:00 Intake Total 2601 ml 2160 ml 1710 ml Output Total 1355 ml 480 ml 200 ml Balance 1246 ml 1680 ml 1510 ml Result Diagram: 03/16/16 0443 03/17/16 0515 Other Results Laboratory Tests Test 03/16/16 03/16/16 03/17/16 08:34 15:53 03:28 Blood Gas Puncture Site ART LINE ART LINE ALVARO Blood Gas Patient Temperature 98.6 98.6 98.6 Blood Gas HCO3 18 mmol/L 19 mmol/L 21 mmol/L (22-26) (22-26) (22-26) Blood Gas Base Excess -7.7 mmol/L -6.2 mmol/L -5.0 mmol/L (-2-2) (-2-2) (-2-2) Blood Gas Oxygen Saturation 94 % (90-100) 91 % (90-100) 90 % (90-100) Arterial Blood pH 7.30 7.33 7.27 (7.380-7.420) (7.380-7.420) (7.380-7.420) Arterial Blood Partial 36 mmHg (38-42) 37 mmHg (38-42) 47 mmHg (38-42) Pressure CO2 Arterial Blood Partial 84 mmHg 69 mmHg 71 mmHg Pressure O2 (61-120) (61-120) (61-120) Arterial Blood Oxygen Content 15.0 Vol % 13.8 Vol % 12.5 Vol % (12.0-20.0) (12.0-20.0) (12.0-20.0) Arterial Blood 0.9 % (0-4) 1.1 % (0-4) 1.0 % (0-4) Carboxyhemoglobin Arterial Blood Methemoglobin 0.9 % (0-2) 1.0 % (0-2) 1.0 % (0-2) Blood Gas Hemoglobin 11.3 G/DL 10.7 G/DL 9.8 G/DL (12.0-16.0) (12.0-16.0) (12.0-16.0) Oxygen Delivery Device VENTILATOR VENTILATOR VENTILATOR Blood Gas Ventilator Setting CPAP/PSV12/PEEP10 CPAP,PEEP10,PS12 CPAP/PS10/PEEP10 Blood Gas Inspired Oxygen 90 % 90 % 100 % Objective Remarks GENERAL: Critically ill appearing gentleman, intubated and sedated SKIN: Warm and dry. HEAD: Atraumatic. Normocephalic. EYES: Pupils equal and round. No scleral icterus. No injection or drainage. ENT: No nasal bleeding or discharge. Mucous membranes pink and moist. Orotracheally intubated. NECK: Trachea midline. No JVD. Right IJ central line, C/D/I CARDIOVASCULAR: Normal rate, regular rhythm. S1,S2 RESPIRATORY: Coarse rhonchorous breath sounds, bilaterally. Expiratory wheezing noted. GASTROINTESTINAL: Abdomen soft, non-tender, slightly protuberant nondistended. Large midline umbilical hernia, easily reducible. Left former EVELYN site, draining clear, pink tinged fluid. Staple line without erythema or drainage. Hypoactive bowel sounds. MUSCULOSKELETAL: Extremities without clubbing, cyanosis, or edema. No obvious deformities. NEUROLOGICAL: GCS 3T, sedated and intubated. Upon sedation vacation, localizes 4 extremities. Urinary Catheter: Yes Assessment to: Continue Morales insert reason: Measure Accurate Output Vascular Central Line Catheter: Yes Assessment to: Continue Side: Right Location: Internal, Jugular A/P Assessment and Plan Plan by systems: Neurologic: Seizure disorder Dementia -Intubated, and sedated on propofol infusion -Will change to fentanyl infusion, and discontinue propofol -Sedation vacation per ICU protocol -Continue Depakote and Keppra home medications Respiratory: Hypoxic respiratory failure H/O tobacco abuse COPD -Bronchodilator scheduled every 6 hours, and every 2 hours when necessary -Currently on CPAP 10 over 10 FiO2 1.0, continue to attempt to wean FiO2 maintain O2 sat 90-92%, the patient continues on spontaneous ventilation -Methylprednisolone 40 mg q 6 hr -Mechanical vent settings CPAP/PSV 10/10 FiO2 1.0, ABG 7.27/47/71/21/-5.0 -SBT when clinically indicated, tolerated -Ventilator bundle -Maintain head of bed 30 -Employment Officer on board Dr. [id number] recommendations - CT chest when stable for transport Cardiovascular: Cardiomyopathy Cardiomegaly A. fib with RVR-resolved -Maintain MAP greater than 65 mmHG -Continue to wean vasopressors currently on levophed 14 mcgs, dobutamine 5 mcgs , vasopressin 0.04mcgs -Obtain BNP ECHO 03/15- EF 40-45% Renal: Acute on chronic kidney disease Lactic acidosis S/P Left Nephrectomy POD #5 -Creatinine 2.13, last admission 10/2015 -Creatinine increasing 2.03->2.40->2.69 -Lactate 3.5on 03/16, follow-up repeat lactate level -Potassium 5.1- last 48 hours -Will begin sodium bicarbonate infusion@ 30/hr, nephrology consulted appreciate recommendations -Will double concentrate all IV fluids, avoid nephrotoxins -Obtain urine sodium and urine creatinine -- Strict I/Os FEN/GI: Hyponatremia Hyperkalemia H/o Carcinoid tumor Severe protein calorie malnutrition Large umbilical hernia -Replete electrolytes per ICU protocol -Zofran for nausea -Protonix GI prophylaxis -Patient currently on Benicar protein 3 times a day, will hold and await recommendations from nephrology - Obtain CT abd, pelvis when clinically stable for transport -Obtain KUB, follow up results Heme/ID: Sepsis Multilobular pneumonia-Pseudomonas Thrombocytopenia -Infectious disease on board, Dr. Jiménez -Follow up blood culture results -Sputum culture03/13 -pseudomonas aeruginosa -Platelet Count 33, continues on heparin infusion for suspected PE per Dr. Bernard. The patient was transfused one 6 pack of platelets 03/16, and Plts continue to decrease. The patient has history of pancytopenia, since 10/2015. No obvious signs of bleeding noted. Will transfuse 1 unit of platelets.Obtain HIT panel.Will D/C heparin infusion. -Hematology consult- appreciate recommendations Endocrine: Hypothyroid -Blood glucose monitoring every 6 hour per ICU protocol -- SSI -Continue Synthroid 50 mcgs -Obtain thyroid panel MSK: -PT evaluate and treat -Functional Maintenance daily Prophylaxis: GI Prophylaxis Protonix DVT Prophylaxis -- SCDs No pharmacologic DVT prophylaxis Lines: Peripheral IVs 2. Right IJ double-lumen Dispo: This patient remains critically ill with one or more organ systems which are or may become a threat to life. I have spent in excess of 49 minutes discontinuously in the care and management of this patient. This time is exclusive of procedures, and includes, but is not limited to, evaluation of the patient, review of the medical record, discussions with family, consultants, nursing staff, or respiratory therapy, and documentation in the medical record. Spoke with daughter Radha Fontana , Healthcare Surrogate and provided an update on the patient's current medical status and consultations regarding Nephrology and Hematology. Physician Lissett Galarza MD Mar 17, 2016 08:34
[2016-03-17] MEDS: levETIRAcetam 500 MG/5 ML UDC PO SCH (08:43)
[2016-03-17] MEDS ORDERED: DEXTROSE 50% IN WATER 50 ML VIAL(D50) IV PUSH PRN (08:45)
[2016-03-17] MEDS ORDERED: GLUCAGON 1 MG/ML VIAL OTHER PRN (08:45)
[2016-03-17] MEDS ORDERED: fentaNYL DRIP 250 ML IV SCH (09:00)
[2016-03-17] MEDS ORDERED: SODIUM BICARBONATE 8.4% INJ 150 MEQ in SODIUM CHLOR 0.9% 1000 ML INJ 850 ML IV SCH (09:00)
[2016-03-17 10:24] LABS: BANDS 26 % (0-6); NEUTROPHIL # MANUAL DIFF 5.4 TH/MM3 (1.8-7.7); PLATELET ESTIMATE SMEAR LOW (NORMAL); PLATELET MORPHOLOGY ENLARGED (NORMAL); POLYS (SEG NEUTROPHILS) 64 % (16-70); SCAN/DIFF FINAL DIFF MANUAL; WBC DIFF SAMPLE 100
[2016-03-17 10:25] LABS: BURR CELLS 1+ (NORMAL)
[2016-03-17] MEDS: INSULIN ASPART SUPPLEMENTAL SCALE SQ SCH ×2 (11:00→16:00)
[2016-03-17] MEDS ORDERED: NOREPINEPHRINE 8 MG/D5W 250 ML IV SCH ×2 (11:45)
[2016-03-17 11:49] LABS: BLOOD GAS BASE EXCESS -5.4 mmol/L (-2-2); BLOOD GAS CARBOXYHEMOGLOBIN 0.8 % (0-4); BLOOD GAS HCO3 22 mmol/L (22-26); BLOOD GAS O2 HGB SATURATION 90 % (90-100); BLOOD GAS OXYGEN CONTENT 12.7 Vol % (12.0-20.0); BLOOD GAS PCO2 62 mmHg (38-42); BLOOD GAS PO2 73 mmHg (61-120); TEMP CORR TO 98.6
[2016-03-17 11:50] LABS: CRITICAL VALUE YES; DRAW SITE ART LINE; FIO2 95 %; OXYGEN DEVICE VENTILATOR; STAT YES; VENT SETTINGS CPAP 10/PS 12
[2016-03-17] MEDS ORDERED: SODIUM BICARBONATE 8.4% INJ 50 MEQ/50 ML SYR ONE (12:10)
[2016-03-17] MEDS ORDERED: SODIUM BICARBONATE 8.4% INJ 50 MEQ/50 ML SYR IV ONE (12:15)
[2016-03-17 12:20] LABS: FREE T4 0.68 NG/DL (0.76-1.46)
[2016-03-17] MEDS ORDERED: ALBUMIN HUMAN 25% 25 GM/100 ML BAGP IV SCH (13:00)
[2016-03-17] MEDS ORDERED: metroNIDAZOLE 500 MG INJ 100 ML IV SCH (14:00)
--- NOTE | 2016-03-17 14:09 | HHI.IDPN ---
Subjective Subjective Remarks is a 85 y/o WM who was admitted to the hospital for video-assisted left nephrectomy. His PMhx is significant for thrombocytopenia, carcinoid tumor , seizure disorder. The patient underwent the procedure on 03/13/2016 for a left renal mass which was highly suspicious for renal cell carcinoma. The procedure was converted to an open surgical procedure. The patient has been on the ventilator and he was evaluated by pulmonary specialty because of significant hypoxemia. He also developed hypotension. He is currently on Levophed at 22 mcg. Sputum culture was taken on 03/13/2016 and it came back with Pseudomonas aeruginosa. The patient has been afebrile since admission. His white count is 10.3 today, however, his platelet count is decreased at 40. He has 21% bands on the differential. Chest x-ray from 03/13/2016 revealed a right lower lobe infiltrates suggesting atelectasis. Repeat chest x-ray on 03/14/2016 showed improvement but follow-up on 03/15/2016 showed worsening aeration, and he now has worsening right lung parenchymal process and development of focal consolidation of the left lung base. He has a copious amount of thick secretions being suctioned from the endotracheal tube. The patient is currently on the ventilator and is sedated and unresponsive. Information is obtained from the medical records. The patient has been in the hospital recently on two occasions. He was treated for pneumonia with lung infiltrate but cultures were not obtained because he was not coughing up any sputum. At the recent hospitalization he was found to be pancytopenic and was seen by hematology. It was felt that the pancytopenia may have been related to medications and cephalosporin was suspect. He was treated with cefepime and Levaquin at that admission. PAST MEDICAL HISTORY 1. COPD. 2. Hypothyroidism. 3. Coronary artery disease. 4. Hypertension. 5. Gastroesophageal reflux disease. 6. Benign prostatic hypertrophy. 7. Alzheimer's dementia. 8. Cardiomyopathy. 9. Malignant carcinoid tumor. 10. Tonsillectomy. 11. Dental surgery. 12. Renal pathology pending from current left renal mass resection. Antibiotics Zosyn IV Levaquin IV Vanco IV Lines RIJ CL site with no e/o infection Left arterial line with no e/o infection. Past Medical History 1. Low platelets was seeing step finisher in the past. COPD. 2. Hypothyroidism. 3. Coronary artery disease. 4. Hypertension. 5. Gastroesophageal reflux disease. 6. Benign prostatic hypertrophy. 7. Alzheimer's dementia. 8. Cardiomyopathy. 9. Malignant carcinoid tumor. 10. Tonsillectomy. 11. Dental surgery. 12. Renal pathology pending from current left renal mass resection. Allergies: Coded Allergies: No Known Allergies (Unverified , 03/07/16) Objective . Vital Signs Date Time Temp Pulse Resp B/P Pulse Ox O2 Delivery O2 Flow Rate FiO2 03/17/16 12:20 91 95 03/17/16 10:00 93 03/17/16 09:13 91 95 03/17/16 08:00 92 03/17/16 08:00 95 03/17/16 08:00 98.3 90 19 118/43 92 03/17/16 06:00 92 03/17/16 04:00 100 03/17/16 04:00 97.6 97 15 130/45 94 03/17/16 04:00 97 03/17/16 03:30 91 100 03/17/16 02:12 125 03/17/16 02:09 96 03/17/16 01:54 92 100 03/17/16 00:00 95 03/17/16 00:00 100 03/17/16 00:00 98.7 94 15 118/41 80 03/16/16 23:37 90 100 03/16/16 22:00 95 03/16/16 20:00 100 03/16/16 20:00 98.4 91 15 131/47 92 135/62 03/16/16 20:00 89 03/16/16 19:46 91 100 03/16/16 18:00 97 03/16/16 17:09 93 90 03/16/16 16:00 90 03/16/16 16:00 96 03/16/16 16:00 98.7 96 18 131/47 93 131/62 03/16/16 03/16/16 03/17/16 15:00 23:00 07:00 Intake Total 2160 ml 1710 ml 1076 ml Output Total 480 ml 200 ml 250 ml Balance 1680 ml 1510 ml 826 ml Intake IV Total 2060 ml 1578 ml 830 ml Tube Feeding 72 ml 126 ml Other 100 ml 60 ml 120 ml Output Urine Total 450 ml 200 ml 250 ml Stool Total 0 ml Drainage Total 30 ml # Bowel Movements 0 0 0 . Laboratory Tests Test 03/16/16 03/17/16 04:43 05:15 White Blood Count 10.3 TH/MM3 6.0 TH/MM3 Red Blood Count 3.75 MIL/MM3 3.21 MIL/MM3 Hemoglobin 11.3 GM/DL 9.8 GM/DL Hematocrit 33.8 % 28.7 % Mean Corpuscular Volume 90.1 FL 89.4 FL Mean Corpuscular Hemoglobin 30.2 PG 30.6 PG Mean Corpuscular Hemoglobin 33.5 % 34.2 % Concent Red Cell Distribution Width 15.3 % 15.5 % Platelet Count 40 TH/MM3 33 TH/MM3 Mean Platelet Volume 10.6 FL 10.5 FL Neutrophils (%) (Auto) 89.4 % 90.6 % Lymphocytes (%) (Auto) 3.2 % 2.1 % Monocytes (%) (Auto) 7.3 % 7.2 % Eosinophils (%) (Auto) 0.0 % 0.0 % Basophils (%) (Auto) 0.1 % 0.1 % Neutrophils # (Auto) 9.2 TH/MM3 5.5 TH/MM3 Lymphocytes # (Auto) 0.3 TH/MM3 0.1 TH/MM3 Monocytes # (Auto) 0.7 TH/MM3 0.4 TH/MM3 Eosinophils # (Auto) 0.0 TH/MM3 0.0 TH/MM3 Basophils # (Auto) 0.0 TH/MM3 0.0 TH/MM3 CBC Comment AUTO DIFF AUTO DIFF Differential Total Cells 100 100 Counted Neutrophils % (Manual) 47 % 64 % Band Neutrophils % 41 % 26 % Lymphocytes % 3 % 2 % Monocytes % 7 % 8 % Neutrophils # (Manual) 9.3 TH/MM3 5.4 TH/MM3 Metamyelocytes 2 % Differential Comment FINAL DIFF FINAL DIFF MANUAL MANUAL Platelet Estimate LOW LOW Platelet Morphology Comment NORMAL ENLARGED Buhler Cells 2+ 1+ Laboratory Tests Test 03/15/16 03/16/16 03/16/16 03/16/16 16:04 04:43 06:55 10:15 Lactic Acid Level 4.4 mmol/L 3.0 mmol/L 3.4 mmol/L Sodium Level 133 MEQ/L Potassium Level 4.9 MEQ/L Chloride Level 104 MEQ/L Carbon Dioxide Level 20.1 MEQ/L Anion Gap 9 MEQ/L Blood Urea Nitrogen 30 MG/DL Creatinine 2.40 MG/DL Estimat Glomerular Filtration 26 ML/MIN Rate Random Glucose 146 MG/DL Calcium Level 7.1 MG/DL Protein Corrected Calcium 8.0 MG/DL Total Protein 5.4 GM/DL Test 03/16/16 03/17/16 03/17/16 03/17/16 15:40 01:41 05:15 11:17 Potassium Level 5.1 MEQ/L 5.1 MEQ/L 5.1 MEQ/L Magnesium Level 1.4 MG/DL 2.0 MG/DL 2.1 MG/DL Sodium Level 130 MEQ/L Chloride Level 97 MEQ/L Carbon Dioxide Level 22.7 MEQ/L Anion Gap 10 MEQ/L Blood Urea Nitrogen 45 MG/DL Creatinine 2.69 MG/DL Estimat Glomerular Filtration 23 ML/MIN Rate Random Glucose 149 MG/DL Calcium Level 7.0 MG/DL Protein Corrected Calcium 8.1 MG/DL Total Bilirubin 0.9 MG/DL Aspartate Amino Transf 80 U/L (AST/SGOT) Alanine Aminotransferase 17 U/L (ALT/SGPT) Alkaline Phosphatase 51 U/L Total Protein 5.1 GM/DL Albumin 1.6 GM/DL Lactic Acid Level 2.0 mmol/L B-Type Natriuretic Peptide 867 PG/ML Free Thyroxine 0.68 NG/DL Thyroid Stimulating Hormone 0.401 uIU/ML 3rd Gen Microbiology Date/Time Procedure Status Source Growth 03/16/16 14:17 Aerobic Blood Culture - Preliminary Resulted Blood Peripheral NO GROWTH IN 1 DAY 03/16/16 14:17 Anaerobic Blood Culture - Final Resulted Blood Peripheral QNS - SEE AEROBE REPORT 03/16/16 14:24 Aerobic Blood Culture - Preliminary Resulted Blood Peripheral NO GROWTH IN 1 DAY 03/16/16 14:24 Anaerobic Blood Culture - Final Resulted Blood Peripheral QNS - SEE AEROBE REPORT Imaging Last Impressions Chest X-Ray 03/17/16 0400 Signed Impressions: Service Date/Time: Thursday, March 17, 2016 04:51 - CONCLUSION: Bilateral airspace opacities, increased on the right, decreased in the medial left and stable in the perihilar and lower lateral left lung. Dalton Morrison MD Physical Exam GENERAL: Acutely ill, intubated and sedated. HEENT: Head is atraumatic. Unable to assess extraocular movements. Oropharynx intubated. Buccal mucosa is slightly dry. NECK: Supple without adenopathy or swelling. LUNGS: Coarse rhonchi bilaterally. HEART: Regular rate and rhythm. No audible murmurs, rubs or gallops. ABDOMEN: Bowel sounds present. Soft. Unable to appreciate tenderness. Surgical incisions appear intact and there is no drainage at the entry sites where the video-assisted incisions were made for his surgery. : Unremarkable. RECTAL: Not performed. EXTREMITIES: 1+ edema. SKIN: No rash. The patient has multiple skin tags on the upper chest. NEUROLOGIC: Unable to assess. Assessment & Plan Remarks Septic Shock with MODS s/p left side robotic converted to open nephrectomy. h/o carcinoid syndrome/tumor. Sources: Intra-abd, Cath associated UTI, Central line associated bacteremia, Pneumonia. Acute resp failure on vent: Sepsis, pulm edema from ARF. Acute renal failure: sepsis, Acute interstitial nephritis from meds. Acute metabolic encephalopathy: sepsis, ? IC bleed. Anemia and thrombocytopenia: ? chronic. PSAE Pneumonia: pansensitive PSAE. Umbilical hernia: reducible. Seizure disorder on antiepileptics. Recs: Panculture again including lines. DC Zosyn IV DC Levaquin IV DC Vanco IV (will redose based on levels) Start Zerbaxa IV (ASP: suspect MDR PSAE, cannot use Meropenem IV as he has seizure disorder) Start Flagyl IV (suspect intra abd pathology) Start Micafungin IV (line infection vs intraabdominal pathology) Abdomen KUB stat (r/o free air/perforation) CT chest/abd/pelvis without contrast ordered stat but currently patient on max dose pressors and resp condition may not permit. Once able to would like imaging piter. Platelet workup: HIT panel, DIC/consumptive pathology workup. Hematology consult pending. Time in excess of 40 mins, d/w micro, d/w clinical pharmacist about Zerbaxa and renal dosing. d/w RN and . Critical thinking and decision making. Joellen Beltran MD Mar 17, 2016 14:09
[2016-03-17 14:43] LABS: BLOOD GAS BASE EXCESS -3.2 mmol/L (-2-2); BLOOD GAS HCO3 24 mmol/L (22-26); BLOOD GAS O2 HGB SATURATION 90 % (90-100); BLOOD GAS OXYGEN CONTENT 11.8 Vol % (12.0-20.0); BLOOD GAS PCO2 60 mmHg (38-42); BLOOD GAS PO2 70 mmHg (61-120); BLOOD GAS TOTAL HGB 9.3 G/DL (12.0-16.0); CRITICAL VALUE YES; OXYGEN DEVICE Y; TEMP CORR TO 98.6; VENT SETTINGS CPAP 10/PS 12
[2016-03-17 14:44] LABS: FIO2 95 %
[2016-03-17 14:46] LABS: DRAW SITE ART LINE; STAT NO
[2016-03-17] MEDS ORDERED: BUMETANIDE INJ 1 MG/4 ML VIAL IV PUSH ONE (15:00)
[2016-03-17] MEDS ORDERED: MICAFUNGIN INJ 150 MG in SODIUM CHLORIDE 0.9% INJ 100 ML IV SCH (15:00)
--- NOTE | 2016-03-17 15:12 | RADRPT ---
EXAM DATE/TIME: 03/17/2016 14:30 [facility] COMPARISON: No previous studies available for comparison. INDICATIONS : Abdomen pain. MEDICAL HISTORY : None. SURGICAL HISTORY : Colon resection. Nephrectomy, left. ENCOUNTER: Subsequent ACUITY: 4 - 6 days PAIN SCORE: Non-responsive. LOCATION: Bilateral lower quadrant FINDINGS: 2 supine frontal views of the abdomen demonstrates a relative paucity of bowel gas. Nasogastric tube is present as well as a catheter overlying the pelvis. Marcial overlie the left abdomen and left uppe r quadrant. No organomegaly is appreciated. There are degenerative changes of the spine. Airspace con solidation is present in the midlung zones bilaterally, right greater than left. CONCLUSION: 1. No acute abdominal abnormality is identified. 2. Bilateral lung airspace consolidation. Balaji Gomez MD on March 17, 2016 at 15:09 Board Certified Radiologist. This report was verified electronically.
[2016-03-17] MEDS ORDERED: MORPHINE SULFATE 8 MG/ML INJ IV PUSH ONE (15:45)
[2016-03-17] MEDS ORDERED: HYOSCYAMINE 0.5 MG/ML AMP IV ONE (15:45)
[2016-03-17] MEDS ORDERED: MIDAZOLAM HCL 5 MG/ML VIAL (1 ML) IV ONE ×2 (15:45→16:00)
--- NOTE | 2016-03-17 15:59 | HHI.PR ---
Subjective Remarks POD #4 Remains intubated and non-responsive. Family wishes to withdraw care and keep pt comfortable. Objective Vital Signs Vital Signs Date Time Temp Pulse Resp B/P Pulse Ox O2 Delivery O2 Flow Rate FiO2 03/17/16 12:20 91 95 03/17/16 10:00 93 03/17/16 09:13 91 95 03/17/16 08:00 92 03/17/16 08:00 95 03/17/16 08:00 98.3 90 19 118/43 92 03/17/16 06:00 92 03/17/16 04:00 100 03/17/16 04:00 97.6 97 15 130/45 94 03/17/16 04:00 97 03/17/16 03:30 91 100 03/17/16 02:12 125 03/17/16 02:09 96 03/17/16 01:54 92 100 03/17/16 00:00 95 03/17/16 00:00 100 03/17/16 00:00 98.7 94 15 118/41 80 03/16/16 23:37 90 100 03/16/16 22:00 95 03/16/16 20:00 100 03/16/16 20:00 98.4 91 15 131/47 92 135/62 03/16/16 20:00 89 03/16/16 19:46 91 100 03/16/16 18:00 97 03/16/16 17:09 93 90 03/16/16 16:00 90 03/16/16 16:00 96 03/16/16 16:00 98.7 96 18 131/47 93 131/62 I/O 03/16/16 03/16/16 03/16/16 03/17/16 03/17/16 03/17/16 07:00 15:00 23:00 07:00 15:00 23:00 Intake Total 2601 ml 2160 ml 1710 ml 1076 ml Output Total 1355 ml 480 ml 200 ml 250 ml Balance 1246 ml 1680 ml 1510 ml 826 ml Intake IV Total 2501 ml 2060 ml 1578 ml 830 ml Tube Feeding 72 ml 126 ml Tube Irrigant 100 ml Other 100 ml 60 ml 120 ml Output Urine Total 1200 ml 450 ml 200 ml 250 ml Stool Total 0 ml Gastric Drainage Total 100 ml Drainage Total 55 ml 30 ml # Bowel Movements 0 0 0 0 Result Diagram: 03/17/16 0515 03/17/16 0515 Objective Remarks Abdomen nondistended, wound sites clean and dry Extremities adequately perfused EVELYN drain in place with serosanguineous output Assessment and Plan Assessment and Plan Urologic impression: Status post robot-assisted laparoscopic left radical nephrectomy which was converted to an open surgical procedure. Remains ventilator dependent and non-reponsive. Remains on pressors. ARDS/Sepsis Prognosis poor Plan: Wthdraw care as per request of family and keep pt comfortable. Appreciate assistance from Dr Paul. Juan F Ortega MD Mar 17, 2016 15:59
[2016-03-17] MEDS ORDERED: CEFTOLOZANE-TAZOBACTAM INJ 375 MG in SODIUM CHLORIDE 0.9% INJ 100 ML IV SCH (16:00)
[2016-03-17] MEDS ORDERED: MORPHINE SULFATE 4 MG/ML INJ IV ONE (16:00)
[2016-03-17] MEDS ORDERED: MORPHINE SULFATE 4 MG/ML INJ IV PRN (16:15)
[2016-03-17] MEDS ORDERED: LORazepam 2 MG/ML VIAL IV PRN (16:15)
[2016-03-17] MEDS ORDERED: BISACODYL 10 MG SUPP PR PRN (16:15)
[2016-03-17] MEDS ORDERED: MORPHINE SULFATE 8 MG/ML INJ IV PUSH PRN (16:15)
[2016-03-17] MEDS ORDERED: FUROSEMIDE 20 MG/2 ML VIAL IV PRN (16:15)
[2016-03-17] MEDS ORDERED: LORazepam 2 MG/ML VIAL IVS PRN (16:15)
[2016-03-17] MEDS ORDERED: HYOSCYAMINE 0.5 MG/ML AMP IV PRN (16:15)
[2016-03-17] MEDS ORDERED: ACETAMINOPHEN 650 MG SUPP PR PRN (16:15)
[2016-03-17] MEDS: VASOPRESSIN INJ 40 UNITS in DEXTROSE 5% IN WATER 100ML INJ 98 ML IV SCH ×2 (16:31)
[2016-03-17] MEDS ORDERED: BUMETANIDE INJ 1 MG/4 ML VIAL IV PUSH SCH (18:00)
--- NOTE | 2016-03-17 19:00 | MB ---
cc: LEATHA KINGSTON MD DATE OF CONSULTATION: 03/17/2016. REASON FOR CONSULTATION: Acute renal failure. HISTORY OF PRESENT ILLNESS: This is an 85-year-old male. The patient has a history of a renal mass and underwent a left-sided nephrectomy on March 13 which was suspicious for renal cell cancer. Pathology is pending at this time. The procedure was initially started as a robotic procedure and was converted to an open surgical procedure. Postoperatively the patient had respiratory failure and developed hypotension. The patient is in the ICU at this time and is intubated. He has been diagnosed with an apparent Pseudomonas pneumonia and is being followed up with infectious disease and is on a Levaquin dose at this time. The patient was being treated for her ongoing pneumonia with sepsis and remains on pressor support at this time. The patient had a previous hospitalization earlier with pneumonia and also had previous hospitalization where he had thrombocytopenia which was attributed to possible cephalosporins. Over this hospital course his platelet counts have decreased with his ongoing sepsis with a platelet count of 33,000 today. Regarding his renal function, the patient had apparently creatinine that ranged between 1.2 and 2.1 since October of 2015. His creatinine was 1.44 on March 07 and increased up to 2 and then 2.4 and 2.69 today. Over the last 24 hours his urine output has started to decrease. He did make 2.4 liters of urine output yesterday; however, today he has only reportedly been making between 10 and 20 cc per hour. His pressor support was also increased today. Given the worsening renal function, nephrology was consulted for further evaluation. PAST MEDICAL HISTORY: His past medical history includes: 1. COPD. 2. Hypothyroidism. 3. Coronary artery disease. 4. Hypertension. 5. Gastroesophageal reflux disease (GERD). 6. Benign prostate hypertrophy. 7. Alzheimer's dementia. 8. Cardiomyopathy. 9. Apparent carcinoid tumor. 10. Tonsillectomy. 11. Dental surgery. 12. The patient had a nephrectomy here on this admission and his pathology results are pending at this time. 13. 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 ALLERGIES: NO KNOWN DRUG ALLERGIES. SOCIAL HISTORY: No tobacco, alcohol or drug use. FAMILY HISTORY: No known history of kidney disease. REVIEW OF SYSTEMS: His review of systems is unobtainable as the patient is intubated and sedated at this time. PHYSICAL EXAMINATION: GENERAL: At the time of evaluation, the patient is intubated and sedated. HEAD, EYES, EARS, NOSE, THROAT AND NECK: Soft, supple. CARDIAC: Regular rate and rhythm. PULMONARY: Decreased breath sounds at the bases. Bibasilar crackles. ABDOMEN: Distended. Decreased abdominal sounds. EXTREMITIES: 2+ edema. LABORATORY FINDINGS: Sodium 130, potassium 5.1, chloride 97, bicarb 22, BUN 45, creatinine 2.69 with glucose of 149, calcium of 8.1 and albumin of 1.6. White count 6.0, hemoglobin 9.8, hematocrit 28.7, platelet count 33,000. ASSESSMENT AND PLAN: 1. Acute kidney injury. The patient had a nephrectomy on March 13. His previous creatinine ranged between 1.2 and 2.1 since October of this year and his creatinine prior to nephrectomy was 1.44 on March 07. Postoperatively his creatinine has risen to 2.0 and then 2.4 and then 2.69. It is unclear what type of function his existing kidney has and what the patient's new baseline creatinine will be post nephrectomy; however, in this setting, the patient is also experiencing sepsis with pressor support given his ongoing pneumonia and is now experiencing increased volume overload. At this point, I suspect the patient has acute kidney injury partially due to nephrectomy and also due to ongoing sepsis and hypotension. He has had increased fluid overload with decreased urine output today. At this point, I will go ahead and initiate Bumex and I will give 2 milligrams IV twice a day dosing for now and start an infusion of albumin given his hypoalbuminemia. The patient has been making some urine output. With further urine output, this may improve his volume status. Continue to renal dose medications and antibiotics. There are no indications for dialysis at this time; however, should his renal function continue to worsen, this may be indicative of possible acute tubular necrosis in the setting of hypotension and sepsis and dialysis support may be necessary in the future; however, continue to closely monitor at this point. 2. Pneumonia. Patient with apparent Pseudomonas pneumonia. The patient is being followed with infectious disease and is on Levaquin and Zosyn at this time. Continue to closely monitor. He is on pressor support for sepsis and has decreased platelets as well. Continue to closely monitor and transfuse platelets as needed. 3. Renal cell cancer. The patient is status post nephrectomy. Pathology results are pending at this point. Continue to monitor. 4. Respiratory failure. Will initiate diuretics to goal to diurese as possible; however, the patient remains on significant pressors as well at this time. Continue to monitor. 5. Acidosis. The patient was started earlier on sodium bicarbonate drip at 30 cc/hour. Continue to closely monitor as this is secondary to his renal failure. 6. Atrial fibrillation with rapid ventricular response. The patient apparently had atrial fibrillation with rapid ventricular response last night, which was controlled with Digoxin. Continue to monitor in the intensive care unit. 7. Hypothyroidism. The patient is on Synthroid. Continue to monitor. 8. Hyponatremia. This is likely secondary to volume overload. The patient has a sodium of 130 today and will initiate diuresis and continue to monitor response. Further increase diuretics as needed. MD MONIQUE Thakur/YVAN /12:53 PM /6:28 PM BRITT
[2016-03-17] MEDS ORDERED: MORPHINE SULFATE 4 MG/ML INJ IV SCH (20:00)
[2016-03-17] MEDS ORDERED: LORazepam 2 MG/ML VIAL IV SCH (20:00)
[2016-03-17] MEDS ORDERED: DOCUSATE SODIUM 100 MG/10 ML UDC PO SCH (21:00)
[2016-03-18] MEDS ORDERED: SENNOSIDES SYRUP 8.8 MG/5 ML CUP PO SCH (09:00)
--- NOTE | 2016-03-19 22:22 | EKG ---
Date Performed: 03/17/2016 Time Performed: 02:12:24 PTAGE: 85 years EKG: Possible Sinus rhythm with PVC/PAC, with an increase in the rate, possible afib Poor R wave progression - probable normal variant Low QRS voltages in limb leads Nonspecific ST and T wave abnormalities Abnormal ECG Compared to the PREVIOUS TRACING from 03/17/16, previously normal sinus rhythm DOCTOR: Malachi Guo Interpretating Date/Time 03/19/2016 22:20:45
--- NOTE | 2016-03-19 22:23 | EKG ---
Date Performed: 03/17/2016 Time Performed: 02:09:28 PTAGE: 85 years EKG: Sinus rhythm . Poor R wave progression - probable normal variant Nonspecific ST and T wave abnormalities Low QRS v oltages in limb leads Borderline ECG PREVIOUS TRACING : 03/15/2016 08.02 Compared to the previous tracing, previously more prominent ST changes DOCTOR: Malachi Guo Interpretating Date/Time 03/19/2016 22:22:41
--- NOTE | 2016-04-02 14:08 | HHI.DS ---
Discharge Summary Admission Date Mar 13, 2016 at 06:33 Discharge Date: Mar 17, 2016 Admitting Diagnosis Left renal hilar mass (1) Kidney mass Diagnosis: Principal Procedures Robot-assisted laparoscopic left radical nephrectomy performed on March 17 Brief History 85-year-old gentleman with multiple medical problems was admitted for definitive management of an enlarging left renal hilar mass suspicious for malignancy. PE at Discharge Not applicable Hospital Course Patient admitted on March 17 and underwent a robot-assisted laparoscopic left radical nephrectomy. Patient had a large left renal hilar mass with extension into the left renal vein. Postoperatively the patient was dependent on mechanical ventilation and could not be extubated. By postop day #4 patient's family members had requested that all supportive care be withdrawn. Family's wishes were complied with and the patient subsequently . Juan F Ortega MD Apr 02, 2016 14:08
== END 2016-03-17 18:00 | disposition expired | DRG 656 ==
LOC: HSDI 03-13 06:33 → N03A 03-13 19:54
PROVIDERS: ADMIT Urology; ATTEND Urology
PROC: 8E0W4CZ Robotic Assisted Procedure of Trunk Region, Percutaneous Endoscopic Approach (ICD-10-PCS; 2016-03-13)
PROC: 30233N1 Transfusion of Nonautologous Red Blood Cells into Peripheral Vein, Percutaneous Approach (ICD-10-PCS; 2016-03-13)
PROC: 0TT10ZZ Resection of Left Kidney, Open Approach (ICD-10-PCS; principal; 2016-03-13 09:25)
PROC: 30233R1 Transfusion of Nonautologous Platelets into Peripheral Vein, Percutaneous Approach (ICD-10-PCS; 2016-03-16)
DX: C64.2 Malignant neoplasm of left kidney, except renal pelvis (principal); J95.821 Acute postprocedural respiratory failure; R65.21 Severe sepsis with septic shock; J15.1 Pneumonia due to Pseudomonas; E43 Unspecified severe protein-calorie malnutrition; A41.9 Sepsis, unspecified organism; N17.9 Acute kidney failure, unspecified; D61.818 Other pancytopenia; J81.1 Chronic pulmonary edema; J80 Acute respiratory distress syndrome; E87.2 Acidosis; J98.11 Atelectasis; I42.9 Cardiomyopathy, unspecified; E87.1 Hypo-osmolality and hyponatremia; Z99.11 Dependence on respirator [ventilator] status; J44.0 Chronic obstructive pulmonary disease with (acute) lower respiratory infection; G30.9 Alzheimer's disease, unspecified; F02.80 Dementia in other diseases classified elsewhere, unspecified severity, without behavioral disturbance, psychotic disturbance, mood disturbance, and anxiety; G40.909 Epilepsy, unspecified, not intractable, without status epilepticus; I12.9 Hypertensive chronic kidney disease with stage 1 through stage 4 chronic kidney disease, or unspecified chronic kidney disease; E03.9 Hypothyroidism, unspecified; I25.10 Atherosclerotic heart disease of native coronary artery without angina pectoris; K21.9 Gastro-esophageal reflux disease without esophagitis; N40.0 Benign prostatic hyperplasia without lower urinary tract symptoms; N18.9 Chronic kidney disease, unspecified; K42.9 Umbilical hernia without obstruction or gangrene; E87.70 Fluid overload, unspecified; E87.5 Hyperkalemia; I48.91 Unspecified atrial fibrillation; Z53.31 Laparoscopic surgical procedure converted to open procedure; Z87.01 Personal history of pneumonia (recurrent); Z85.030 Personal history of malignant carcinoid tumor of large intestine
CPT/HCPCS: 36430; 71010; 74000; 76937; 80048; 80053; 80202; 82550; 82552; 82570; 82805; 82948; 83605; 83735; 83880; 84132; 84155; 84300; 84439; 84443; 84484; 85007; 85014; 85018; 85027; 85730; 86850; 86900; 86901; 86920; 87040; 87070; 87077; 87186; 87205; 87641; 88307; 88341; 88342; 93005; 93306; 94002; 94003; 94640; 94664; C9113; J0131; J0171; J0610; J0690; J0692; J1160; J1170; J1200; J1250; J1644; J1720; J1940; J1956; J1980; J2248; J2250; J2270; J2370; J2405; J2543; J2920; J2930; J3010; J3370; J3475; J7030; J7040; J7060; J7120; J7613; P9016; P9035; P9045; P9047